=== PATIENT | male | born 1975 | race Caucasian/White ===

== ENCOUNTER 2017-03-29 01:01 | Inpatient (IN) | payer SELFPAY ==
[2017-03-29 02:15] LABS: PTT 33.2 SEC (22.9-36.1)
[2017-03-29 02:21] LABS: Lactic Acid - Sepsis 0.8 mmol/L (0.5-2.2)
[2017-03-29 02:25] LABS: ALT (SGPT) 1530 U/L (8-55); AST (SGOT) 1324 U/L (5-34); Alkaline Phosphatase 457 U/L (40-150); Anion Gap 11 mmol/L (10-20); BUN (Urea Nitrogen) 7 mg/dL (8.9-20.6); Bilirubin, Total 8.4 mg/dL (0.2-1.2); Calc. Creatinine Clearance 0 mL/min (70-130); Calcium 8.8 mg/dL (7.8-10.44); Carbon Dioxide 29 mmol/L (22-29); Chloride 103 mmol/L (98-107); Estimated GFR-MDRD Greater than 90; Globulin 3.1 g/dL (2.4-3.5); Lipase 30 U/L (8-78); Protein, Total 6.4 g/dL (6.0-8.3)
[2017-03-29 02:26] LABS: Acetaminophen Less than 6.0 mcg/mL (10.0-30.0); CK (CPK) 133 U/L (30-200); Magnesium 1.9 mg/dL (1.6-2.6); Salicylate Less than 8.0 mg/dL (15.0-30.0)
[2017-03-29 02:57] LABS: Amphetamine Detected (NotDetected); Methadone Not Detected (NotDetected); Methamphetamine Detected (NotDetected)
[2017-03-29 03:19] LABS: #Basophils 0.1 thou/uL (0.0-0.2); #Eosinphils 0.6 thou/uL (0.0-0.7); #Lymphocytes 2.5 thou/uL (1.20-3.40); #Monocytes 0.8 thou/uL (0.11-0.59); #Neutrophils 4.5 thou/uL (1.40-6.50); %Basophils 0.9 % (0.0-1.0); %Eosinophils 6.9 % (0.0-10.0); %Lymphocytes 29.3 % (21.0-51.0); %Monocytes 9.7 % (0.0-10.0); Hematocrit 43.9 % (42.0-52.0); Mean Platelet Volume 9.4 fL (7.4-10.4); Red Blood Cell (RBC) Count 4.52 mill/uL (4.70-6.10); White Blood Cell (WBC) Count 8.5 thou/uL (4.8-10.8)
[2017-03-29] MEDS: Sodium Chloride 0.9% 1,000 ML IV SCH ×3 (03:45→20:20)
[2017-03-29] MEDS ORDERED: Ondansetron HCl/PF 4 MG/2 ML Vial IVP PRN (03:53)
[2017-03-29] MEDS ORDERED: Ondansetron ODT 4 MG TAB SL PRN (03:53)
[2017-03-29 04:39] VITALS: BMI 18.8
--- NOTE | 2017-03-29 06:38 | HP-2 ---
DATE OF ADMISSION: 03/29/2017 CODE STATUS: FULL. PRIMARY CARE PHYSICIAN: Benitez acharya. ATTENDING: Vaughn Iverson M.D. RESIDENT: Tyree Gregg DO HISTORIAN: The patient. CHIEF COMPLAINT: Nausea, vomiting. HISTORY OF PRESENT ILLNESS: A 42-year-old male with a history of IV drug use incarceration, presents to the emergency room via outside facility with a chief complaint of 5 days of nausea and vomiting with one day of diarrhea that began on 03/24/2017. He is been able to tolerate fluids and some food; however, if he hits too much, he will become nauseous and vomit. Over the past 2 days, he states he became progressively weaker with some malaise saying that he almost felt he has the flu. 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 At one point yesterday while in the tree, he said he felt very weak and almost fell off the tree and to be caught by his safety rope. At that point , he spoke with his coworkers and they noticed that he had yellowing of his eyes and encouraged him to go to the emergency room. When he went to the emergency room, he was diagnosed with acute hepatitis and transferred to this facility. He has been consistently using IV methamphetamine for the past year, and has a history of incarceration of 18 years, was released in 2013. Apparently at the time of release from longterm, he was tested and was negative for hepatitis C. PAST MEDICAL HISTORY: None. PAST SURGICAL HISTORY: Status post ORIF to the right leg and arm. The specific location of the fracture is unknown to the patient. ALLERGIES: No known drug allergies. MEDICATIONS: None. FAMILY HISTORY: Alcoholism. SOCIAL HISTORY: Tobacco, none. ETOH, none. Drugs, IV methamphetamine and marijuana. 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 REVIEW OF SYSTEMS: General: The patient denies fever or chills. Admits to a decrease in appetite and fatigue. HEENT: Denies vision changes, eye pain, nasal congestion, or rhinorrhea. Respiratory: Denies any cough, congestion, shortness of breath. Cardiovascular: Denies any chest pain, palpitations, or edema. Gastrointestinal: Admits to nausea, vomiting, diarrhea. Denies constipation, abdominal pain, or GI bleeding. The patient does admit to multiple instances of a penny-colored stool. Genitourinary: Denies any dysuria or stephanie blood in his urine. Skin: Denies any rashes, lesions, admits to jaundice. Musculoskeletal: Denies pain, tenderness, stiffness. Neurologic: Denies any weakness or numbness. Psychiatric: Denies anxiety, depression. PHYSICAL EXAMINATION: VITAL SIGNS: Blood pressure is 114/77, pulse of 73, respiratory rate is 16, pulse oximetry 96% on room air, current weight is 70.3 kilograms. GENERAL: The patient is alert and oriented x3, and in no apparent distress. He is thin, appropriately interactive. HEENT: PERRLA, EOMI. Patient has scleral icterus bilaterally with nasal mucosa within normal limits. TMs are pearlescent without bulging or erythema. Oropharynx within normal limits. NECK: Supple, without lymphadenopathy or thyromegaly. CARDIOVASCULAR: Regular rate and rhythm without murmur. RESPIRATORY: Normal effort. Clear to auscultation bilaterally. No retractions. SKIN: Warm and dry with minimal jaundice. ABDOMEN: Soft with bowel sounds in all four quadrants. There is no mass, distention. There is some right upper quadrant tenderness and left lower quadrant tenderness. EXTREMITIES: There is no clubbing or edema. MUSCULOSKELETAL: Tone is within normal limits. NEUROLOGICAL: No focal neurological deficits and cranial nerves II through XII are grossly intact. LABORATORY DATA: CBC: Hemoglobin 13.1, hematocrit 38.2, white count 8.7, platelets 262, MCV is 89.7, bands 55%. CMP: Sodium 135, potassium 4.1, chloride 99, bicarbonate 26.4, BUN 8.0, creatinine 0.7, glucose 94, calcium 8.1 , total serum protein 6.4, albumin 3.3, AST 1204, ALT 1467, alkaline phosphatase 426, total bilirubin 8.6 with direct bilirubin of 5.3. PT 14, INR 1.4, PTT 33.2. Acetaminophen is less than 6. ETOH is less than 5. Lipase 29.6. UA specific gravity 1.025, blood 3+, protein 1+, leukocyte esterase negative, ketones negative, nitrites negative, glucose trace, rbc's too numerous to count, wbc's 0-5, bacteria rare. Right upper quadrant ultrasound shows a nonspecific gallbladder wall thickening with a pericholecystic fluid, may be secondary to acute hepatitis, positive Nava sign raised the possibility of acute acalculous cholecystitis. There is no identified cholelithiasis and no common bile duct dilatation. ASSESSMENT AND PLAN: This is a 42-year-old male with acute hepatitis of unknown etiology. 1. Acute hepatitis. Differential diagnosis includes viral hepatitis, Tylenol overdose, drug-related, obstruction, and autoimmune. The patient is currently not altered and coag studies are not suggestive of acute hepatic failure. We will order a viral hepatitis panel, toxicity screen, and ammonia levels. Admit to medicine. We will avoid hepatically eliminated medicines and we will provide supportive care until we are able to identify source. 2. Direct hyperbilirubinemia consistent with hepatocellular toxicity, workup as above. 3. Hematuria, possibly secondary from the trauma when he got caught by a harness when he fell out of a tree today versus possible blood spilling with a slightly elevated INR. 4. Intravenous drug use. We will add a human immunodeficiency virus and rapid plasma reagin in addition to the hepatitis panel. MTDD
--- NOTE | 2017-03-29 07:53 | ULT ---
PRELIMINARY REPORT/[facility]/EMERGENCY AFTER HOURS PROCEDURE: EXAM: US Abdomen Limited, Right Upper Quadrant EXAM DATE/TIME: Exam ordered 03/29/2017 1:37 AM CLINICAL HISTORY: 42 years old, male; Pain and signs and symptoms; Nausea and vomiting and other: Diarrhea; Abdominal pain; Epigastric; Additional info: HX: Acute hepatitis TECHNIQUE: Real-time ultrasound of the right upper quadrant with image documentation. COMPARISON: No relevant prior studies available. FINDINGS: Liver: Normal. No mass. No intrahepatic bile duct dilation. Gallbladder: There is gallbladder wall thickening measuring approximately 6 mm. A positive sonograph ic Nava sign is reported. Pericholecystic fluid is present. No cholelithiasis is identified. Common bile duct: Unremarkable as visualized. No stones. No dilation. Pancreas: The visualized pancreas is normal. Right kidney: RIGHT kidney measures 11.3 x 4.3 x 6.0 cm. No stones. No hydronephrosis. IMPRESSION: Nonspecific gallbladder wall thickening and pericholecystic fluid may be secondary to acute hepatiti s however positive Nava sign raises the possibility of acute acalculus cholecystitis. Correlate cl inically. Thank you for allowing us to participate in the care of your patient. Dictated and Authenticated by: Maxwell Shankar MD 03/29/2017 2:07 AM Central Time ([place] \T\ [place]) FINAL REPORT GALLBLADDER ULTRASOUND: Date: 03/29/17 FINDINGS/IMPRESSION: I agree with the preliminary report given by Dr. Maxwell Shankar of [facility]. POS: [facility]
[2017-03-29 08:17] LABS: ALT (SGPT) 1527 U/L (8-55); AST (SGOT) 1348 U/L (5-34); Alkaline Phosphatase 425 U/L (40-150); Anion Gap 9 mmol/L (10-20); BUN (Urea Nitrogen) 6 mg/dL (8.9-20.6); Bilirubin, Total 8.3 mg/dL (0.2-1.2); Calc. Creatinine Clearance 113 mL/min (70-130); Calcium 8.6 mg/dL (7.8-10.44); Carbon Dioxide 27 mmol/L (22-29); Chloride 106 mmol/L (98-107); Estimated GFR-MDRD Greater than 90; Protein, Total 6.2 g/dL (6.0-8.3)
--- NOTE | 2017-03-29 11:27 | PDOC.EVN ---
Attending Addendum - Attending Addendum I personally evaluated the patient and discussed the management with Dr. Gregg. I agree with the History, Examination, Assessment and Plan documented in his H& P with any addition or exceptions noted below. Patient admitted with what sounds likely acute onset of jaundice associated with highly elevated liver enzymes and ALP, after a few days of feeling unwell. He has subsequently tested positive for Hep C, and liver U/S does not show any evidence of major abnormality. Currently, patient being treated supportively for hepatitis, with inciting cause overall unknown. It is possible that this could be acute Hep C infection due to history of drug abuse, but I feel that is less likely to cause the patient's current lab abnormalities. My differential at this time includes autoimmune, infectious, portal vein thrombosis, biliary obstruction (stone versus stricture versus mass). Despite fluid therapy, his AST /ALT/ALP have remained elevated. No current evidence of fulminant hepatic failure as his coags are normal and albumin only mildly decreased, implying continued good liver synthetic function. His labs paint a picture of possible obstruction. Radiology has re-reviewed the abdominal ultrasound and there is no evidence of vascular congestion or canaliculi/biliary dilation, so that seems like portal vein thrombosis and biliary obstruction are less likely. However, he does have an elevated conjugated bilirubin, continuing to suggest either intrinsic liver process versus obstructive process. We are obtaining labs to screen for auto-immune hepatitis and PBC and sclerosing cholangitis. Patient overall feels improved at this time. We will go ahead and consult GI at this time in case more acute intervention needed for his liver process that is going on. Radiology feels like MRCP/ERCP might aid in diagnosis and therefore will get GI recommendations.
--- NOTE | 2017-03-29 14:10 | CON ---
DATE OF CONSULTATION: 03/29/2017 HISTORY OF PRESENT ILLNESS: The patient is a 42-year-old male who reports a 6-day history of nausea, vomiting, and abdominal discomfort. He reports his abdominal discomfort is more diffuse and somewhat in the upper abdomen, not particularly severe and has essentially resolved today. It was noted by one of his friends to be jaundiced and sought care in the emergency room. He denies pr ior history of hepatitis. Denies any weight loss, denies any fever or chills. He does use IV metha mphetamine. He has been incarcerated in the past and received some sort of hepatitis vaccine while incarcerated. PAST MEDICAL HISTORY: None. PAST SURGICAL HISTORY: Negative. MEDICATIONS: None. ALLERGIES: No known allergies. SOCIAL HISTORY: He does smoke half pack per day. Does not drink. He does use IV drugs. FAMILY HISTORY: Significant for alcoholism. REVIEW OF SYSTEMS: Ten systems were reviewed and were negative except for above. PHYSICAL EXAMINATION: GENERAL: Shows a jaundiced white male in no acute distress. VITAL SIGNS: Temperature is 97.3, pulse 59, respiratory rate 18, blood pressure 106/61. HEENT: Shows scleral icterus. NECK: Supple. CHEST: Clear. CARDIOVASCULAR: Regular rate and rhythm. ABDOMEN: Soft, nontender, without organomegaly or masses. Bowel sounds present and normoactive. RECTAL: Deferred. EXTREMITIES: Normal. NEUROLOGIC: Nonfocal. SKIN: Shows tattoo in the abdomen. LABORATORY DATA: Shows CBC with hemoglobin 13.8, MCV of 97.2, platelet count 286. PT is 14.0 with an INR of 1.1. Chemistries significant for admission total bilirubin of 8.4, repeat is 8.3, AST is 13 and 48, ALT of 15 and 27, alkaline phosphatase of 425, albumin 3.2. Lipase of 30. Toxicology is positive for amphetamines and methamphetamines. Alcohol, acetaminophen, and salicylates are negati ve. Serology shows nonreactive syphilis serology. Hepatitis A is nonreactive, hepatitis B surface antigen is nonreactive, hepatitis B surface antibody is reactive. Hepatitis B surface antibody inde x is 435. Hepatitis B core antibody is nonreactive. Hepatitis C antibody is positive. HIV is nega tive. ASSESSMENT: 1. Acute hepatitis - suspect viral hepatitis. However, serology for hepatitis A is negative. Hepa titis B serology seems to show that he has had previous vaccination and immune. Hepatitis C is posi tive, so unlikely that this is acute hepatitis C as his antibody is positive. 2. Nausea and vomiting. 3. Methamphetamine abuse. RECOMMENDATIONS: 1. CT of the liver. 2. Hepatitis C viral level and genotype. 3. Supportive care.
[2017-03-29] MEDS ORDERED: ISOVUE-370 76%-LOCM 1 ML ONE (14:26)
--- NOTE | 2017-03-29 15:46 | CT ---
CT ABDOMEN WITH CONTRAST: HISTORY: Elevated transaminase lab values. Jaundiced for five days. Evaluate for biliary obstruction. COMPARISON: None. TECHNIQUE: Multiple contiguous axial images were obtained in a CT of the abdomen only with contrast, and p.o. c ontrast was administered. Coronal reformats were performed. FINDINGS: There is severe thickening of the gallbladder wall and a small amount of pericholecystic fluid. No enlargement of the common bile duct or intrahepatic biliary tree is seen. There is a small amount o f periportal edema. No focal liver lesions are present. The kidneys, adrenal glands, spleen, and pancreas are unremarkable. No free air, free fluid, or str anding changes are seen in the abdomen. The visualized portions of the large and small bowel are un remarkable. No significant contrast is seen in the colon. There is soft tissue density in the righ t lower quadrant of the abdomen, which may represent decompressed distal small bowel loops, which guerrier ve not yet filled with contrast. No abdominal adenopathy is seen. The osseous structures, visualized inferior thorax, and abdominal wall soft tissues are unremarkable . IMPRESSION: 1. Gallbladder wall thickening is nonspecific. 2. No evidence of biliary obstruction. POS: [facility]
[2017-03-29 16:35] LABS: ALT (SGPT) 1531 U/L (8-55); AST (SGOT) 1295 U/L (5-34); Alkaline Phosphatase 434 U/L (40-150); Anion Gap 13 mmol/L (10-20); BUN (Urea Nitrogen) 6 mg/dL (8.9-20.6); Bilirubin, Total 9.9 mg/dL (0.2-1.2); Calc. Creatinine Clearance 114 mL/min (70-130); Calcium 8.9 mg/dL (7.8-10.44); Carbon Dioxide 26 mmol/L (22-29); Chloride 104 mmol/L (98-107); Estimated GFR-MDRD Greater than 90; Globulin 3.1 g/dL (2.4-3.5); Protein, Total 6.4 g/dL (6.0-8.3)
[2017-03-30 04:37] LABS: #Basophils 0.1 thou/uL (0.0-0.2); #Eosinphils 0.5 thou/uL (0.0-0.7); #Lymphocytes 2.7 thou/uL (1.20-3.40); #Monocytes 1.1 thou/uL (0.11-0.59); #Neutrophils 5.5 thou/uL (1.40-6.50); %Basophils 0.6 % (0.0-1.0); %Eosinophils 4.7 % (0.0-10.0); %Monocytes 11.5 % (0.0-10.0); Hematocrit 42.3 % (42.0-52.0); Mean Platelet Volume 8.8 fL (7.4-10.4); Red Blood Cell (RBC) Count 4.36 mill/uL (4.70-6.10); White Blood Cell (WBC) Count 9.9 thou/uL (4.8-10.8)
[2017-03-30 04:54] LABS: ALT (SGPT) 1468 U/L (8-55); AST (SGOT) 1237 U/L (5-34); Alkaline Phosphatase 421 U/L (40-150); Anion Gap 11 mmol/L (10-20); BUN (Urea Nitrogen) 9 mg/dL (8.9-20.6); Bilirubin, Total 9.9 mg/dL (0.2-1.2); Calc. Creatinine Clearance 97 mL/min (70-130); Calcium 8.9 mg/dL (7.8-10.44); Carbon Dioxide 29 mmol/L (22-29); Chloride 102 mmol/L (98-107); Estimated GFR-MDRD Greater than 90; Protein, Total 6.3 g/dL (6.0-8.3)
[2017-03-30] MEDS: Sodium Chloride 0.9% 1,000 ML IV SCH ×2 (05:26→08:28)
--- NOTE | 2017-03-30 06:40 | PDOC.FM ---
- Subjective Subjective: Patient doing well this AM. No significant overnight events. Had a very honest conversation with patient this AM. We discussed recent tylenol use/abuse. Patient states that he took two tylenol #3 a month or two ago, but has not taken anything since. He also admitted to his IV drug use, and states that he has been calling around to see if the drugs he has been using have been "cut" with anything different. So far he has been told no. He states that everything seemed to start after eating chicken a few nights ago. He got what he thought was food poisoning. His friend noted he looked pale at that time. At work a day or two later, he almost fell out of a tree because he got dizzy. That is ultimately what prompted him to come into the ER. A year ago, patient tested negative for HepC. That was around the time he was being released from care home. The HepC is a new diagnosis for patient. He understands that the drug use is likely the culprit of the HepC infection. We also discussed that there were treatments for Hep C, however, it is not likely that the Hep C is what is causing the acute infection. - Objective MAR Reviewed: Yes Vital Signs & Weight: Vital Signs (12 hours) Temp Pulse Resp BP Pulse Ox 03/30/17 04:00 98.4 F 59 L 16 113/68 97 03/30/17 00:00 98.2 F 66 18 114/70 98 03/29/17 20:00 98.5 F 74 16 110/67 98 Weight Admit Weight 62.913 kg Weight 62.913 kg I&O: 03/28/17 03/29/17 03/30/17 06:59 06:59 06:59 Intake Total 1640 4400 Output Total 1000 Balance 640 4400 Result Diagrams: 03/30/17 03:59 03/30/17 03:59 <Jessenia Goldman - Last Filed: 03/30/17 08:43> - Objective Vital Signs & Weight: Vital Signs (12 hours) Temp Pulse Resp BP Pulse Ox 03/30/17 08:00 98.0 F 77 16 98 03/30/17 07:50 98.0 F 77 16 100/64 98 03/30/17 04:00 98.4 F 59 L 16 113/68 97 Weight Admit Weight 62.913 kg Weight 62.913 kg I&O: 03/29/17 03/30/17 03/31/17 06:59 06:59 06:59 Intake Total 1640 4400 440 Output Total 1000 875 Balance 640 4400 -435 Result Diagrams: 03/30/17 03:59 03/30/17 03:59 <IversonVaughn Cherelle - Last Filed: 03/30/17 14:25> Phys Exam - Physical Examination Constitutional: NAD HEENT: moist MMs Scleral icterus Neck: supple, full ROM Respiratory: no wheezing, no rales, no rhonchi, clear to auscultation bilateral Cardiovascular: RRR, no significant murmur Gastrointestinal: soft, no distention, positive bowel sounds mild tenderness on right side of abdomen. Negative ruiz's. Musculoskeletal: no edema, pulses present Neurological: moves all 4 limbs Psychiatric: normal affect, A&O x 3 Skin: cap refill <2 seconds Deviation from normal: Athlete's foot on right. <Jessenia Goldman - Last Filed: 03/30/17 08:43> Dx/Plan (1) Acute hepatitis Code(s): B17.9 - ACUTE VIRAL HEPATITIS, UNSPECIFIED Status: Acute Plan: -Specific cause unknown -Likely viral; although Hep A antibodies negative -Hep C antibodies positive; however, likely not cause as antibodies would not yet be present if acute infection -CT of abdomen performed; nonspecific gallbladder wall thickening and no evidence of biliary obstruction -RUQ U/S showed gallbladder wall thickening without any stones -Obtained more history from patient; did not assist in diagnosis. -Supportive therapy -IVF -Zofran for N/V -GI consulted; appreciate recommendations -Patient tolerating PO -Pending SHILO and AMA -HIV, RPR negative (2) Hepatitis C Code(s): B19.20 - UNSPECIFIED VIRAL HEPATITIS C WITHOUT HEPATIC COMA Status: Acute Plan: -Hepatitis C viral level and genotype -HepC Ab positive; was negative one year ago -Supportive therapy at this time (3) Methamphetamine abuse Code(s): F15.10 - OTHER STIMULANT ABUSE, UNCOMPLICATED Status: Acute Plan: -Stitch Burnisher on cessation -Likely cause for Hep C infection <Jessenia Goldman - Last Filed: 03/30/17 08:43> Attending Addendum - Attending Addendum I personally evaluated the patient and discussed the management with Dr. Goldman. I agree with the History, Examination, Assessment and Plan documented above with any addition or exceptions noted below. Patient clinically stable, though his bilirubin has worsened some. Enzymes are mildly downtrending. CT negative for any cause of obstructive process. It is currently thought that his hepatitis is acute viral in nature, though auto immune labs pending. Will check coags tomorrow to ensure synthetic function not worsening. Continue supportive measures. <Vaughn Iverson R - Last Filed: 03/30/17 14:25>
[2017-03-30 10:47] LABS: Prothrombin Time 14.1 SEC (12.0-14.7)
[2017-03-30 10:48] LABS: PTT 34.9 SEC (22.9-36.1)
[2017-03-30 16:36] LABS: ALT (SGPT) 1482 U/L (8-55); AST (SGOT) 1286 U/L (5-34); Alkaline Phosphatase 456 U/L (40-150); Anion Gap 12 mmol/L (10-20); BUN (Urea Nitrogen) 7 mg/dL (8.9-20.6); Bilirubin, Total 9.4 mg/dL (0.2-1.2); Calc. Creatinine Clearance 110 mL/min (70-130); Calcium 8.9 mg/dL (7.8-10.44); Carbon Dioxide 26 mmol/L (22-29); Chloride 103 mmol/L (98-107); Estimated GFR-MDRD Greater than 90; Globulin 3.1 g/dL (2.4-3.5); Protein, Total 6.4 g/dL (6.0-8.3)
[2017-03-30 18:39] VITALS: BP 108/64; TEMP 98.1
--- NOTE | 2017-03-30 19:33 | PRG ---
DATE OF SERVICE: 03/30/2017 SUBJECTIVE: The patient is feeling well. He is having no pain, no nausea, vomiting, no diarrhea. He is eating well without complaints. He is ready to go home: PHYSICAL EXAMINATION: VITAL SIGNS: Temperature 98.0, pulse 77, respiratory rate 16, blood pressure 100/64. CHEST: Clear. CARDIOVASCULAR: Regular rate and rhythm. ABDOMEN: Benign. . LABORATORY DATA: Shows stable LFTs SHILO is negative. CBC is essentially unchanged. The patient has no coagulopathy. ASSESSMENT: Acute hepatitis -- patient does not appear to be in acute hepatic failure and is not guerrier ving any particular acute complications at this time. RECOMMENDATIONS: 1. Consider testing for autoimmune hepatitis with SHILO, smooth muscle antibody. 2. Antimitochondrial antibody. 3. Ceruloplasmin. 4. Shahab-Abarca viral serology. 5. The patient seems to be stable for discharge if these can have close followup with a repeat set of LFTs in 3-4 days.
[2017-03-31 12:10] LABS: HCV I.Units 12000000 IU/mL (.); HCV I.Units log10 7.079 (.); Hep C PCR-Quant See Final Results IU/mL (.)
--- NOTE | 2017-04-02 00:16 | DIS-2 ---
DATE OF ADMISSION: 03/29/2017 DATE OF DISCHARGE: 03/30/2017 RESIDENT: Jessenia Goldman DO ADMITTING ATTENDING: Renee Bethea DO DISCHARGE ATTENDING: Vaughn Iverson MD CONSULTATIONS: Gastroenterology, Jose Zavala MD PROCEDURES: 1. Abdominal ultrasound, there was nonspecific gallbladder wall thickening and pericholecystic fluid that may be secondary to acute hepatitis. There is a possibility of acute acalculous cholecystitis. 2. Abdominal CT with contrast, there was nonspecific gallbladder wall thickening and no evidence of biliary obstruction. PRIMARY DIAGNOSES: 1. Acute hepatitis, likely viral etiology. 2. Hyperbilirubinemia. SECONDARY DIAGNOSES: 1. Chronic hepatitis C. 2. Methamphetamine abuse. DISCHARGE MEDICATIONS: None. DISCONTINUED MEDICATIONS: None. HISTORY OF PRESENT ILLNESS AND HOSPITAL COURSE: This is a 42-year-old male with a history of IV drug abuse and incarceration within the last year, who presented to the emergency room via an outside facility with chief complaint of 5 days of nausea and vomiting and 1 day of diarrhea. He has been able to tolerate fluids and some food; however, he has been struggling with nausea and vomiting. Two days prior to the admission, he became progressively weaker with some malaise, stating that he felt like he had the flu. 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 At one point, he felt very weak and almost fell from the tree and was caught by his safety rope. At that point, he spoke with his co-workers and they noticed that he had yellowing of his eyes and encouraged him to go to the emergency room. He was diagnosed with acute hepatitis and transferred to [facility]. He has been consistently using IV methamphetamine for the past year and has a history of incarceration of 18 years. He was released in 2013. Apparently, at the time of release from [facility], he was tested and was negative for hepatitis C. The patient remained stable throughout the course of his hospital stay. He continued to clinically improve. Nausea and vomiting were relieved with Zofran. The patient was able to tolerate p.o. intake without any difficulty. He was eating a full diet and had no nausea or vomiting at all during his hospital stay. The patient was IV fluid resuscitated and GI was consulted. GI recommended CT of the abdomen with contrast; this showed some nonspecific gallbladder wall thickening and no evidence of biliary or liver obstruction. The hepatitis panels were performed. The patient was negative for hepatitis A and B; however, he was positive hepatitis C. Likely this is not the cause of his acute infection. This is likely chronic in nature; however, a hepatitis C viral level and phenotype were obtained which showed elevated quantitative HCV. GI recommended supportive care. As the patient continued to clinically improve , did not recommend much further workup. Liver enzymes did not downtrend; however, they did remain stable. Bilirubin increased initially but remained stable after that period in time. Additionally, coagulation studies were performed the day after admission; they too remained stable. AST and ALT on admission were 1324 and 1530, respectively. On discharge, the AST and ALT were 1286 and 1482, respectively. Bilirubin on admission was 8.4, on discharge, it was 9.4; however, it had gone up to a high of 9.9. At one point during the hospital stay, alkaline phosphatase was also elevated in the mid 400s. Sodium was 138, potassium 4.1, chloride 103, bicarbonate 26, BUN 7, creatinine 0.78, calcium 8.9, magnesium 1.9, creatinine kinase is 133. Lactic acid was normal at 0.8. As mentioned previously, coagulation studies were performed on admission; they were PT 14, INR 1.1 and PTT of 33.2. These labs remained stable and on the second day of admission, PT was 14.1, INR 1.1, and PTT of 34.9 indicating no dysfunction in synthetic process of liver. Albumin remained stable at 3.3 throughout the entire course of the hospital stay on several serial CMPs. CBC was performed. White blood cell count was 8.5, hemoglobin 13.8, hematocrit 43.9, and platelet count of 286. Toxicology did show positive amphetamines and methamphetamines for which the patient admitted to using. An SHILO was performed to evaluate for autoimmune causes of hepatitis. SHILO was negative and antimitochondrial antibody was also performed to rule out primary biliary cirrhosis. SHILO was 7.9, which is within the normal range. Syphilis was negative. HIV antigen and antibody were nonreactive. As mentioned previously, hepatitis C antibody was positive. Hepatitis C RNA was noted to be 12 million with the PCR log of 7.079. After speaking with Dr. Zavala of , he recommended further testing with SHILO, anti-smooth muscle antibody, antimitochondrial antibody, ceruloplasmin, antitrypsin, and EBV to further evaluate cause of acute hepatitis. These serologies were performed and are currently pending. GI felt that the patient was stable for discharge with close followup of repeat LFTs in the next 3-4 days. This was discussed at length with the patient. The patient was highly motivated to follow up. Although he does not have a primary care physician, he stated that he would be willing to pay to see a physician. The number for [employer] [facility] [employer] was also provided as patient is non-funded. It was explained in detail the necessity for a very close followup to reevaluate the liver enzymes. The patient was in understanding of this plan. He was given the option to stay in the hospital an additional day; however, he stated he did not have a ride the following day and would rather leave the day of discussion since his mother was in town and could provide him a ride home. He stated that he would indeed follow up closely with a physician. As mentioned previously, he was very highly motivated to do so. He has not been ill recently and this episode did scare him. Prior to discharge, it was discussed with the patient to refrain from alcohol, drug, or Tylenol use, as this could further exacerbate his acute illness. The patient was in agreement with this and is in understanding the necessity to stay away from these substances and the necessity for very close followup. The pending serologies if positive will be relayed to the patient once resulted. DISPOSITION: Stable. DISCHARGE INSTRUCTIONS: 1. Location: Home. 2. Diet: Regular. 3. Activity: As tolerated. The patient advised to refrain from working up in trees until he is stronger physically. He does need some time to recover and to regain strength. 4. Followup: The patient is to follow up within 3-4 days and no later than 7 days with a primary care or gastrointestinal physician. The [employer] [facility] [employer] was provided to the patient as he was unfunded, although it was discussed that he could see anyone he desired depending on the funding he had available. The patient was very highly motivated to be reevaluated. Liver enzymes are to be retested at the followup visit. The patient was in understanding of this plan and agreeable. JOSE ELIAS
== END 2017-03-30 18:39 | disposition home or self-care (01) | DRG 443 ==
LOC: ERS 01:01 → T4-B 03:45
PROVIDERS: ADMIT Family Medicine; ATTEND Family Medicine
DX: B17.9 Acute viral hepatitis, unspecified (principal); K81.9 Cholecystitis, unspecified; F15.10 Other stimulant abuse, uncomplicated; E80.6 Other disorders of bilirubin metabolism; R31.9 Hematuria, unspecified; B18.2 Chronic viral hepatitis C
CPT/HCPCS: 36415; 74160; 76705; 80053; 80306; 80307; 82103; 82140; 82390; 82550; 83516; 83605; 83690; 83735; 85025; 85610; 85730; 86038; 86704; 86706; 86708; 86709; 86780; 86803; 87340; 87389; 87522; 96360

== ENCOUNTER 2018-04-22 12:59 | Inpatient (IN) | payer SELFPAY ==
--- NOTE | 2018-04-22 14:52 | RAD ---
THREE VIEWS RIGHT HAND: HISTORY: Right hand infection. FINDINGS: AP, lateral, and oblique views of the right hand are obtained. Three views right hand demonstrate ol d surgical hardware in the distal right radius. A nonhealed ulnar styloid fracture is also seen whic h appears to be old. No acute right hand fractures seen. No definite evidence of osseous lesions seen to suggest obvious lytic bony pathology. IMPRESSION: No evidence of acute right hand abnormality is seen. POS: PENELOPE
[2018-04-22 15:04] LABS: Hemoglobin 12.7 g/dL (14.0-18.0); Mean Corpuscular HGB CONC 31.7 g/dL (32.0-36.0); Mean Corpuscular Volume 94.7 fL (78.0-98.0); Mean Platelet Volume 7.6 fL (7.4-10.4); Platelet Count 268 thou/uL (130-400); RBC Distribution Width 13.2 % (11.5-14.5); Red Blood Cell (RBC) Count 4.22 mill/uL (4.70-6.10); White Blood Cell (WBC) Count 9.3 thou/uL (4.8-10.8)
[2018-04-22 15:21] LABS: Band 5 % (5-11); Lymphocytes 6 % (21-51); MDiff Complete? YES; Metamyelocyte 1 % (0-0); Monocytes 10 % (0-10); Neutrophil 75 % (42-75); PLT Morphology Comment Appears Adequate; Polychromasia SLIGHT = 2-3 cells (100X) (0-2/hpf); Reactive Lymphocytes 2 % (0-10)
[2018-04-22 15:25] LABS: ALT (SGPT) 30 U/L (8-55); AST (SGOT) 31 U/L (5-34); Albumin 3.4 g/dL (3.5-5.0); Alkaline Phosphatase 185 U/L (40-150); Anion Gap 9 mmol/L (10-20); BUN (Urea Nitrogen) 7 mg/dL (8.9-20.6); Bilirubin, Total 0.6 mg/dL (0.2-1.2); Calc. Creatinine Clearance 0 mL/min (70-130); Calcium 8.9 mg/dL (7.8-10.44); Carbon Dioxide 30 mmol/L (22-29); Chloride 99 mmol/L (98-107); Estimated GFR-MDRD Greater than 90; Globulin 4.8 g/dL (2.4-3.5); Glucose 111 mg/dL (70-105); Potassium 4.4 mmol/L (3.5-5.1); Protein, Total 8.2 g/dL (6.0-8.3); Sodium 134 mmol/L (136-145)
[2018-04-22] MEDS ORDERED: Ketorolac Tromethamine 30 MG/ML VIAL ONE (15:55)
--- NOTE | 2018-04-22 16:38 | PDOC.FPRHP ---
- History of Present Illness Chief Complaint: Hand wound History of Present Illness: Mr Palma is a 43yo male with pmh of substance and tobacco abuse presenting with right hand wound. Reports happened 04/07 while cutting down a tree. The tree fell towards him and he tried holding it up. Shortly after he started feeling "bad." 7 days ago he noticed a swollen painful lymph node in his right axillary. Yesterday he developed a diffuse nonpruritic rash on both arms and trunk. Reports subjective fever and chills over last few days. ED Course: 1g Vancomycin, 2L NS, Toradol 30mg - Allergies/Adverse Reactions Allergies Allergy/AdvReac Type Severity Reaction Status Date / Time No Known Drug Allergies Allergy Unverified 03/29/17 04:41 - Home Medications Medication Instructions Recorded Confirmed Type No Known 03/29/17 04/23/18 History - History PMHx: None PSHx: None FHx: All healthy Social: Smokes cigarettes 1/2pk/day since age 9. Drinks socially. Uses meth occasionally, last used 6 days ago - Review of Systems General: reports: fever/chills, weight/appetite/sleep changes, fatigue Eyes: denies: eye pain, vision changes ENT: denies: nasal congestion, rhinorrhea Respiratory: denies: cough, congestion, shortness of breath Cardiovascular: denies: chest pain, palpitation, edema Gastrointestinal: reports: nausea. denies: vomiting, abdominal pain Genitourinary: denies: incontinence, dysuria Skin: reports: rashes. denies: itching Musculoskeletal: denies: pain, stiffness, swelling, arthritis/arthralgias Neurological: denies: numbness, weakness - Vital signs BP: 132/83 HR: 92 RR: 19 Tmax: 99.8 Pox: 99% on RA Wt: 68kg - Physical Exam Constitutional: NAD, awake, alert and oriented, well developed -Constitutional: Ill appearing HEENT: normocephalic and atraumatic, PERRLA (pupils constricted), MMM, oropharynx clear Neck: supple Heart: RRR, no murmurs/rubs/gallops Lungs: CTAB, no respiratory distress Abdomen: soft, non-tender, bowel sounds present Musculoskeletal: normal structure, normal tone Neurological: no focal deficit Skin: capillary refill <2 seconds -Skin: Diffuse rash 1.5cm wound with purulent drainage over right dorsal 2nd metocarpal-phalangeal joint Heme/Lymphatic: other (Golf ball sized tender lymphnode in right axilla No cervical lymphadenopathy) Psychiatric: normal mood and affect, good judgment and insight, intact recent and remote memory FMR H&P: Results - Labs Result Diagrams: 04/23/18 04:15 04/23/18 04:15 Lab results: WBC 9.3 thou/uL (4.8-10.8) 04/22/18 14:47 Hgb 12.7 g/dL (14.0-18.0) L 04/22/18 14:47 Hct 40.0 % (42.0-52.0) L 04/22/18 14:47 MCV 94.7 fL (78.0-98.0) 04/22/18 14:47 Plt Count 268 thou/uL (130-400) 04/22/18 14:47 Band Neuts % (Manual) 5 % (5-11) 04/22/18 14:47 ESR Westergren 52 mm/hr (Less than 15) 04/22/18 14:47 Sodium 134 mmol/L (136-145) L 04/22/18 14:47 Potassium 4.4 mmol/L (3.5-5.1) 04/22/18 14:47 Chloride 99 mmol/L (98-107) 04/22/18 14:47 Carbon Dioxide 30 mmol/L (22-29) H 04/22/18 14:47 BUN 7 mg/dL (8.9-20.6) L 04/22/18 14:47 Creatinine 0.79 mg/dL (0.6-1.3) 04/22/18 14:47 Glucose 111 mg/dL (70-105) H 04/22/18 14:47 Lactic Acid 1.1 mmol/L (0.5-2.2) 04/22/18 14:47 Calcium 8.9 mg/dL (7.8-10.44) 04/22/18 14:47 Total Bilirubin 0.6 mg/dL (0.2-1.2) 04/22/18 14:47 AST 31 U/L (5-34) 04/22/18 14:47 ALT 30 U/L (8-55) 04/22/18 14:47 Alkaline Phosphatase 185 U/L (40-150) H 04/22/18 14:47 C-Reactive Protein 7.66 mg/dL (= or < 0.5) H 04/22/18 14:47 Serum Total Protein 8.2 g/dL (6.0-8.3) 04/22/18 14:47 Albumin 3.4 g/dL (3.5-5.0) L 04/22/18 14:47 - Radiology Interpretation Other Status: report reviewed by me Additional comment: Right hand Xray: no abnormalities FMR H&P: A/P - Problem List (1) Open wound of right hand Current Visit: Yes Status: Acute Code(s): S61.401A - UNSPECIFIED OPEN WOUND OF RIGHT HAND, INITIAL ENCOUNTER (2) Tobacco abuse Current Visit: Yes Status: Acute Code(s): Z72.0 - TOBACCO USE (3) Hepatitis C Current Visit: No Status: Acute Code(s): B19.20 - UNSPECIFIED VIRAL HEPATITIS C WITHOUT HEPATIC COMA (4) Methamphetamine abuse Current Visit: No Status: Acute Code(s): F15.10 - OTHER STIMULANT ABUSE, UNCOMPLICATED - Plan Right Hand Cellulitis - Axillary lymphadenopathy - Xray neg for bone involvement - Will obtain MRI to further evaluate, r/o infection involving joint - Continue Vanc/Zosyn - Blood and Wound Cultures pending - Wound Care consulted - F/u Vanc trough - LR @ 100 Hepatitis C - Diagnosed at prior admission - Continue to monitor Substance abuse - Uses Meth, last use 04/1618 - Likely source of Hep C infection Tobacco Abuse - Nicotine patch PRN - 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 Physical Exam: General: alert and oriented x 3 Heart: RRR, no MRG Lungs: CTAB Extremity: RUE with 2 cm superficial ulceration with raised edges and erythematous border all overlying 2nd MCP. streaking up right arm; ~ 5 cm enlarged tender axillary lymph node. - Plan Date/Time: 04/22/18 1634 IBrandee, have evaluated this patient and agree with findings/plan as outlined by advisory internship resident. Pertinent changes/additions are listed here. Cellulitis with lymphangitis. - will continue broadspectrum antibiotics. - due to location of cellulitis overlying joint, we will obtain imaging. - ESR, CRP, wound gram stain/cultures, and blood cultures pending. Hepatitis C history - not currently on treatment - will clarify if pt has ever undergone treatment. Hx of substance abuse. Attending Addendum - Attending Addendum Date/Time: 04/23/181944 I personally evaluated the patient and discussed the management with Dr. Bah on 04/22/2018. I agree with the History, Examination, Assessment and Plan documented above with any addition or exceptions noted below- 43 yo male with h/o substance abuse and hepatitis C who presented with right hand wound. Patient states that he injured his hand 2 weeks ago when he was cutting down a tree. Does not believe he got any thing into the wound but it was taking time to heal. 1 week he noted an enlarged tender lymph node in right axilla. Developed sibj fever/ chills over last 2-3 days. Denies any N/V. Denies any hand pain. PMH/PSH/All/ Meds reviewed and agree with resident's documentation. T103.1 P104 RR22 BP129 /74 Exam repeated by me and agree with resident's findings. Labs: WBC=9.3, H/H= 12.7/40.0, Hni=832, Diff=75N/5B/6L, Lg=139, K=4.4, Cl=99, CO2=30, BUN/Cr=7/0.79 , AST/ALT= 31/30, CRP=7.66. Hand x-ray- negative. A/P: 1) Possible cellulitis- Admit to medical. Continue IV abx. Blood cultures drawn and pending. Consider MRI in morning.
[2018-04-22] MEDS ORDERED: Acetaminophen 500 MG TAB ONE (18:42)
[2018-04-22] MEDS ORDERED: Ondansetron ODT 4 MG TAB PO PRN (19:47)
[2018-04-22] MEDS ORDERED: Nicotine 14 MG PATCH TD SCH (19:47)
[2018-04-22] MEDS: Lactated Ringer's 1,000 ML IV SCH (19:59)
[2018-04-22] MEDS: Piperacillin/Tazobactam 3.375 GM in Sodium Chloride 0.9% 100 ML IVPB SCH (21:12)
[2018-04-22] MEDS: Nicotine 14 MG PATCH TD SCH (21:12)
[2018-04-22] MEDS: Ibuprofen 600 MG TAB PO PRN (21:19)
[2018-04-23 02:47] VITALS: BMI 20.3
[2018-04-23] MEDS: Piperacillin/Tazobactam 3.375 GM in Sodium Chloride 0.9% 100 ML IVPB SCH ×4 (03:45→22:18)
[2018-04-23] MEDS: Vancomycin HCl 1 GM in Premix Bag 1 BAG IVPB SCH ×2 (04:25→16:26)
[2018-04-23 05:51] LABS: ALT (SGPT) 38 U/L (8-55); AST (SGOT) 44 U/L (5-34); Albumin 2.7 g/dL (3.5-5.0); Alkaline Phosphatase 234 U/L (40-150); Anion Gap 10 mmol/L (10-20); BUN (Urea Nitrogen) 9 mg/dL (8.9-20.6); Bilirubin, Total 0.7 mg/dL (0.2-1.2); Calc. Creatinine Clearance 108 mL/min (70-130); Calcium 8.5 mg/dL (7.8-10.44); Carbon Dioxide 29 mmol/L (22-29); Chloride 105 mmol/L (98-107); Estimated GFR-MDRD Greater than 90; Globulin 3.8 g/dL (2.4-3.5); Glucose 148 mg/dL (70-105); Potassium 4.7 mmol/L (3.5-5.1); Protein, Total 6.5 g/dL (6.0-8.3); Sodium 139 mmol/L (136-145)
[2018-04-23 06:09] LABS: Band 19 % (5-11); Hemoglobin 10.9 g/dL (14.0-18.0); Lymphocytes 5 % (21-51); MDiff Complete? YES; Mean Corpuscular Hemoglobin 30.7 pg (27.0-31.0); Mean Corpuscular Volume 96.1 fL (78.0-98.0); Mean Platelet Volume 8.7 fL (7.4-10.4); Monocytes 14 % (0-10); Neutrophil 62 % (42-75); PLT Morphology Comment Appears Adequate; Platelet Count 214 thou/uL (130-400); RBC Distribution Width 13.3 % (11.5-14.5); Red Blood Cell (RBC) Count 3.54 mill/uL (4.70-6.10); White Blood Cell (WBC) Count 11.6 thou/uL (4.8-10.8)
--- NOTE | 2018-04-23 06:12 | PDOC.FM ---
- Subjective Subjective: Pt reports fever and chills overnight that was relieved with Motrin. Denies nausea, vomiting, pain. No questions or concerns. - Objective MAR Reviewed: Yes Vital Signs & Weight: Vital Signs (12 hours) Temp Pulse Resp BP Pulse Ox 04/23/18 00:00 97.8 F 82 16 95/55 L 100 04/22/18 21:25 102.1 F H 106 H 20 111/59 L 04/22/18 20:00 96 04/22/18 19:30 103 F H 107 H 20 115/62 96 Weight Weight 68 kg Result Diagrams: 04/23/18 04:15 04/23/18 04:15 <Melodie Bah - Last Filed: 04/23/18 11:52> - Objective Vital Signs & Weight: Vital Signs (12 hours) Temp Pulse Resp BP Pulse Ox 04/23/18 11:00 98.0 F 63 16 93/58 L 100 04/23/18 08:00 97.4 F L 63 16 91/55 L 99 04/23/18 04:00 98.5 F 82 16 96/53 L 98 Weight Weight 68 kg I&O: 04/22/18 04/23/18 04/24/18 06:59 06:59 06:59 Intake Total 3510 Balance 3510 Result Diagrams: 04/23/18 04:15 04/23/18 04:15 <Vaughn Iverson - Last Filed: 04/23/18 12:43> Phys Exam - Physical Examination Constitutional: NAD HEENT: moist MMs Neck: supple Respiratory: no wheezing, clear to auscultation bilateral Cardiovascular: RRR, no significant murmur Gastrointestinal: soft, non-tender, positive bowel sounds Musculoskeletal: no edema, pulses present Neurological: non-focal Golf ball size tender axillary LN on right Psychiatric: normal affect, A&O x 3 Skin: cap refill <2 seconds Deviation from normal: Diffuse rash, wound over right dorsal metatarsalphalangeal joint 1.5cm <Melodie Bah - Last Filed: 04/23/18 11:52> Dx/Plan (1) Open wound of right hand Code(s): S61.401A - UNSPECIFIED OPEN WOUND OF RIGHT HAND, INITIAL ENCOUNTER Status: Acute (2) Tobacco abuse Code(s): Z72.0 - TOBACCO USE Status: Acute (3) Hepatitis C Code(s): B19.20 - UNSPECIFIED VIRAL HEPATITIS C WITHOUT HEPATIC COMA Status: Acute (4) Methamphetamine abuse Code(s): F15.10 - OTHER STIMULANT ABUSE, UNCOMPLICATED Status: Acute - Plan Plan: Sepsis 2/2 Right Hand Cellulitis - Fever and tachycardia overnight with new leukocytosis - Axillary lymphadenopathy - Xray neg for bone involvement - MRI ordered to further evaluate, r/o infection involving joint - Continue Vanc/Zosyn - Blood and Wound Cultures pending - Wound Care consulted - F/u Vanc trough - LR @ 100 - Will switch to inpt - GGT ordered to r/o bone involvement with elevated alk phos Right Hand Cellulitis - Manage as Above Elevated Alk Phos - Likely related to chronic hep C, consider getting GTT to r/o bone involvement Transaminitis - Likely related to chronic hep C Hepatitis C - Diagnosed at prior admission, pt reports he was never dx'ed - Will obtain Hepatitis panel, RPR and HIV as pt continues to use IV drugs and has transaminitis Substance abuse - Uses Meth, last use 04/1618 - Likely source of Hep C infection - Obtain labs as above Tobacco Abuse - Nicotine patch 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 Bah. I agree with the History, Examination, Assessment and Plan documented above with any addition or exceptions noted below. Patient here with sepsis 2/2 hand infection that looks like it could easily involve deeper structures. Continue abx. MRI pending and wound care on board. Will likely consult Hand surgery after MRI results. Spiked high fever overnight and labs suggesting possible osteomyelitis so hopefully MRI will give us definitive diagnosis. Patient needs to avoid illicit substances. <Vaughn Iverson - Last Filed: 04/23/18 12:43>
[2018-04-23] MEDS: Enoxaparin Sodium 40 MG/0.4 ML SYRINGE SC SCH (08:28)
[2018-04-23] MEDS: Lactated Ringer's 1,000 ML IV SCH ×2 (09:10→19:15)
[2018-04-23 11:10] LABS: HIV (1/2) Antibody/Antigen Non-Reactive (NonReactive); HIV 1/2 INDEX 0.21 S/CO (<1.00); Hep A IgM AB Non-Reactive (NonReactive); Hep A IgM S/CO 0.16 S/CO (0-0.79); Hep B Core Total Ab Non-Reactive (NonReactive); Hep B Core Total Index 0.16 S/CO (0-0.79); Hep B Surf Ag Non-Reactive S/CO (NonReactive)
[2018-04-23 12:19] LABS: Syphilis Antibody Index 17.66 S/CO (<1.00 Non-Reactive)
[2018-04-23] MEDS ORDERED: PROPOFOL 200 MG/20 ML VIAL ONE (12:48)
[2018-04-23] MEDS ORDERED: PHENYLEPHRINE-NS 100 MCG/ML 10 ML SYRINGE ONE (12:48)
[2018-04-23] MEDS ORDERED: Ondansetron PF 4 MG/2 ML Vial ONE (12:48)
[2018-04-23] MEDS ORDERED: Lidocaine 1% PF 5 ML VIAL ONE (12:48)
[2018-04-23 13:30] LABS: Syphilis Antibody REACTIVE (Nonreactive)
[2018-04-23 13:42] LABS: Hep C IgG Ab Reflex HepC Qnt (NonReactive); Hep C Index 15.45 S/CO (0-0.79)
[2018-04-23] MEDS: Ibuprofen 600 MG TAB PO PRN (14:39)
[2018-04-23] MEDS ORDERED: Sodium Chloride 0.9% 30 ML ONE (17:37)
[2018-04-23] MEDS ORDERED: Bacitracin Zinc Ointment 30 gm TUBE ONE (17:37)
[2018-04-23] MEDS ORDERED: Bupivacaine PF 0.5% 30 ML VIAL ONE (17:37)
[2018-04-23] MEDS ORDERED: Fentanyl 100 MCG/2 ML VIAL ONE (18:45)
[2018-04-23] MEDS ORDERED: Promethazine HCl 25 MG/ML VIAL SLOW IVP PRN (19:48)
[2018-04-23] MEDS ORDERED: Promethazine HCl 25 MG/ML VIAL IM PRN (19:48)
[2018-04-23] MEDS ORDERED: Ondansetron HCl/PF 4 MG/2 ML Vial IVP PRN (19:48)
[2018-04-23] MEDS ORDERED: Ketorolac Tromethamine 30 MG/ML VIAL ONE (20:02)
[2018-04-23] MEDS: Ketorolac Tromethamine 30 MG/ML VIAL IVP PRN (22:24)
[2018-04-23] MEDS: Nicotine 14 MG PATCH TD SCH (22:24)
[2018-04-24] MEDS: Piperacillin/Tazobactam 3.375 GM in Sodium Chloride 0.9% 100 ML IVPB SCH ×4 (03:20→20:09)
[2018-04-24] MEDS: Ibuprofen 600 MG TAB PO PRN ×2 (03:20→18:45)
[2018-04-24 04:03] LABS: Vancomycin, Trough 5.4 ug/mL
--- NOTE | 2018-04-24 05:13 | OP ---
DATE OF PROCEDURE: 04/23/2018 PREOPERATIVE DIAGNOSES: 1. A 3 cm diameter with full-thickness skin loss overlying the eschar and probably no gross infectio n. 2. No gross infection seen. PROCEDURES PERFORMED: 1. Debridement of wound, down to and including subcutaneous fat. 2. Application of wet to dry dressing intraoperative. ESTIMATED BLOOD LOSS: 5 mL. TOURNIQUET TIME: 5 minutes. No underlying abscess seen. DESCRIPTION OF PROCEDURE: After successful general LMA technique, the limb was exsanguinated, preppe d and draped. Tourniquet was inflated to 250 mmHg pressure and eschar over the area which was 3 cm, almost in diameter and took approximately 3 minutes to gently shell off the nonviable skin and the subcutaneous fat that is healthy. This was confirmed by the copious bleeding when tourniquet was deflated. We then irrigated with 3 liters normal saline antibiotic placed a wet to dry dressing on the wo und after obtaining hemostasis and then left it open for later closure or skin graft.
[2018-04-24] MEDS: Vancomycin HCl 1 GM in Premix Bag 1 BAG IVPB SCH (05:32)
--- NOTE | 2018-04-24 05:53 | PDOC.FM ---
- Subjective Subjective: Had discussion with pt and his partner yesterday about his Hepatitis infection diagnosed at last admission and positive Syphilis test. Although documented pt clearly understood to follow up with GI after discharge pt failed to do so. This is most likely due to lack of insurance. He has no PCP. Reports he did not know he had Hep C infection. Reports receiving vaccine when he went to nursing home, although pt is likely referring to Hep B vaccination. He is concerned about his partner as she is currently with his . child. He thinks he may have contracted Hepatitis C in nursing home when he receivng multiple tattoos, although pt also continues to use IV drugs. It is unclear if his partner does as well. In regards to the syphilis, he does not remember having a chancre at any point, and reports never being treated. He had a negative RPR last year 03/29/17. - Objective MAR Reviewed: Yes Vital Signs & Weight: Vital Signs (12 hours) Temp Pulse Resp BP Pulse Ox 04/24/18 04:00 100.2 F H 94 16 102/51 L 93 L 04/23/18 22:00 98.0 F 83 18 101/53 L 97 04/23/18 20:00 97.8 F 62 14 101/59 L 98 Weight Admit Weight 68 kg Weight 68 kg I&O: 04/22/18 04/23/18 04/24/18 06:59 06:59 06:59 Intake Total 3510 1408 Balance 3510 1408 Result Diagrams: 04/24/18 03:30 04/24/18 03:30 <Melodie Bah - Last Filed: 04/24/18 12:05> - Objective Vital Signs & Weight: Vital Signs (12 hours) Temp Pulse Resp BP BP Pulse Ox 04/24/18 07:46 98.3 F 88 18 110/68 98 04/24/18 04:00 100.2 F H 94 16 102/51 L 93 L Weight Admit Weight 68 kg Weight 68 kg I&O: 04/23/18 04/24/18 04/25/18 06:59 06:59 06:59 Intake Total 3510 1408 Balance 3510 1408 Result Diagrams: 04/24/18 03:30 04/24/18 03:30 <Vaughn Iverson - Last Filed: 04/24/18 12:25> Phys Exam - Physical Examination Constitutional: NAD Neck: supple Respiratory: no wheezing, clear to auscultation bilateral Cardiovascular: RRR, no significant murmur Gastrointestinal: soft, non-tender, positive bowel sounds Musculoskeletal: no edema, pulses present Neurological: non-focal right axillary LN 3cm Psychiatric: normal affect, A&O x 3 Skin: cap refill <2 seconds Deviation from normal: Diffuse maculopapular rash <Melodie Bah - Last Filed: 04/24/18 12:05> Dx/Plan (1) Open wound of right hand Code(s): S61.401A - UNSPECIFIED OPEN WOUND OF RIGHT HAND, INITIAL ENCOUNTER Status: Acute (2) Tobacco abuse Code(s): Z72.0 - TOBACCO USE Status: Acute (3) Hepatitis C Code(s): B19.20 - UNSPECIFIED VIRAL HEPATITIS C WITHOUT HEPATIC COMA Status: Acute (4) Methamphetamine abuse Code(s): F15.10 - OTHER STIMULANT ABUSE, UNCOMPLICATED Status: Acute (5) Syphilis Code(s): A53.9 - SYPHILIS, UNSPECIFIED Status: Acute - Plan Plan: Sepsis 2/2 likely Right Hand Cellulitis vs endocarditis related to IV drug use - Fever and tachycardia overnight with new leukocytosis - Axillary lymphadenopathy - Xray neg for bone involvement - Continue Vanc/Zosyn, adjusted vanc dose to achieve therapeutic level - Blood, Wound Cultures NGTD - LR @ 100 - Wound Care consulted - Hand Surgery, Dr Samaniego has been consulted, taken back for debridement at 1800 04/23 - No gross infection was visualized during debridement, site was left open for later closure or skin graft. - Echo to eval for endocarditis showed mild TR & MR, mildly dilated LA. Nml EF - Will obtain rapid flu Right Hand Cellulitis - Manage as Above Syphilis - Nonreactive 03/29/17 - Pt reports not being treated for syphilis - Consider secondary syphilis with diffuse rash, due to callusing on hands and feet it is difficult to tell if rash extends to palms and soles. 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 Bah. I agree with the History, Examination, Assessment and Plan documented above with any addition or exceptions noted below. Patient here originally for sepsis 2/2 hand infection. However, OR debridement and exploration did not reveal major source of infection. He does have enlarged lymph node and now positive syphilis titer, consider secondary syphilis as cause. Confirmatory testing pending. He does have diffuse rash that could be rash of secondary syphilis. Continue on abx and check flu swab. He most definitely has Hepatitis C. Will consult ID if no major cause of infection identified. Also need to consider inflammation as cause of his fever though that would be unlikely to cause the rigors and chills he is having. <Vaughn Iverson - Last Filed: 04/24/18 12:25>
[2018-04-24] MEDS: Vancomycin HCl 1.25 GM in Sodium Chloride 0.9% 250 ML 250 ML IVPB SCH ×3 (06:19→22:12)
[2018-04-24 06:39] LABS: #Eosinphils 0.1 thou/uL (0.0-0.7); #Lymphocytes 0.9 thou/uL (1.20-3.40); #Monocytes 0.6 thou/uL (0.11-0.59); #Neutrophils 5.3 thou/uL (1.40-6.50); %Basophils 0.2 % (0.0-1.0); %Eosinophils 1.6 % (0.0-10.0); %Lymphocytes 13.4 % (21.0-51.0); %Monocytes 8.6 % (0.0-10.0); %Neutrophils 76.3 % (42.0-75.0); Hemoglobin 11.1 g/dL (14.0-18.0); Mean Corpuscular HGB CONC 31.6 g/dL (32.0-36.0); Mean Corpuscular Hemoglobin 30.2 pg (27.0-31.0); Mean Corpuscular Volume 95.4 fL (78.0-98.0); Mean Platelet Volume 8.3 fL (7.4-10.4); Platelet Count 182 thou/uL (130-400); RBC Distribution Width 13.4 % (11.5-14.5); Red Blood Cell (RBC) Count 3.67 mill/uL (4.70-6.10)
[2018-04-24 06:49] LABS: ALT (SGPT) 29 U/L (8-55); AST (SGOT) 26 U/L (5-34); Albumin 2.6 g/dL (3.5-5.0); Alkaline Phosphatase 198 U/L (40-150); Anion Gap 9 mmol/L (10-20); BUN (Urea Nitrogen) 9 mg/dL (8.9-20.6); Bilirubin, Total 0.3 mg/dL (0.2-1.2); Calc. Creatinine Clearance 112 mL/min (70-130); Calcium 7.8 mg/dL (7.8-10.44); Carbon Dioxide 27 mmol/L (22-29); Chloride 103 mmol/L (98-107); Estimated GFR-MDRD Greater than 90; Globulin 3.5 g/dL (2.4-3.5); Glucose 174 mg/dL (70-105); Potassium 4.2 mmol/L (3.5-5.1); Protein, Total 6.1 g/dL (6.0-8.3); Sodium 135 mmol/L (136-145)
[2018-04-24] MEDS: Lactated Ringer's 1,000 ML IV SCH ×3 (08:08→22:24)
[2018-04-24] MEDS: Enoxaparin Sodium 40 MG/0.4 ML SYRINGE SC SCH (09:23)
[2018-04-24] MEDS: Ketorolac Tromethamine 30 MG/ML VIAL IVP PRN ×2 (10:48→22:11)
[2018-04-24] MEDS ORDERED: Acetaminophen 325 MG TAB PO SCH (13:00)
[2018-04-24] MEDS: Nicotine 14 MG PATCH TD SCH (22:10)
[2018-04-25] MEDS: Piperacillin/Tazobactam 3.375 GM in Sodium Chloride 0.9% 100 ML IVPB SCH ×4 (02:11→20:41)
[2018-04-25] MEDS: Ibuprofen 600 MG TAB PO PRN ×2 (03:21→15:36)
[2018-04-25 05:17] LABS: #Eosinphils 0.1 thou/uL (0.0-0.7); #Lymphocytes 0.8 thou/uL (1.20-3.40); #Monocytes 0.7 thou/uL (0.11-0.59); #Neutrophils 6.8 thou/uL (1.40-6.50); %Basophils 0.3 % (0.0-1.0); %Eosinophils 1.3 % (0.0-10.0); %Lymphocytes 9.9 % (21.0-51.0); %Monocytes 8.1 % (0.0-10.0); %Neutrophils 80.5 % (42.0-75.0); Hemoglobin 10.5 g/dL (14.0-18.0); Mean Corpuscular HGB CONC 32.3 g/dL (32.0-36.0); Mean Corpuscular Hemoglobin 30.7 pg (27.0-31.0); Mean Corpuscular Volume 95.1 fL (78.0-98.0); Mean Platelet Volume 7.6 fL (7.4-10.4); Platelet Count 189 thou/uL (130-400); RBC Distribution Width 13.3 % (11.5-14.5); Red Blood Cell (RBC) Count 3.43 mill/uL (4.70-6.10); White Blood Cell (WBC) Count 8.5 thou/uL (4.8-10.8)
[2018-04-25 05:27] LABS: ALT (SGPT) 23 U/L (8-55); AST (SGOT) 25 U/L (5-34); Albumin 2.5 g/dL (3.5-5.0); Alkaline Phosphatase 146 U/L (40-150); Anion Gap 11 mmol/L (10-20); BUN (Urea Nitrogen) 6 mg/dL (8.9-20.6); Bilirubin, Total 0.5 mg/dL (0.2-1.2); Calc. Creatinine Clearance 112 mL/min (70-130); Calcium 8.2 mg/dL (7.8-10.44); Carbon Dioxide 26 mmol/L (22-29); Chloride 103 mmol/L (98-107); Estimated GFR-MDRD Greater than 90; Globulin 3.7 g/dL (2.4-3.5); Glucose 163 mg/dL (70-105); Potassium 4.1 mmol/L (3.5-5.1); Protein, Total 6.2 g/dL (6.0-8.3); Sodium 136 mmol/L (136-145)
[2018-04-25] MEDS: Vancomycin HCl 1.25 GM in Sodium Chloride 0.9% 250 ML 250 ML IVPB SCH ×3 (05:33→22:02)
[2018-04-25 06:09] LABS: Vancomycin, Trough 15.2 ug/mL
--- NOTE | 2018-04-25 06:46 | PDOC.FM ---
- Subjective Subjective: Pt reports doing well today. He is feeling better. Denies pain. No questions or concerns at this time. - Objective MAR Reviewed: Yes Vital Signs & Weight: Vital Signs (12 hours) Temp Pulse Resp BP Pulse Ox 04/25/18 05:11 99.1 F 04/25/18 04:00 100.2 F H 92 18 117/63 98 04/24/18 20:00 98.6 F 77 18 106/53 L 94 L Weight Admit Weight 68 kg Weight 68 kg I&O: 04/23/18 04/24/18 04/25/18 06:59 06:59 06:59 Intake Total 3510 1408 Balance 3510 1408 Result Diagrams: 04/25/18 04:43 04/25/18 04:43 Phys Exam - Physical Examination Ill appearing covered in with heavy sleeping bag Neck: supple Respiratory: no wheezing, clear to auscultation bilateral Cardiovascular: RRR, no significant murmur Gastrointestinal: soft, non-tender, positive bowel sounds Musculoskeletal: no edema, pulses present right hand bandaged Large right axillary LN No inguinal, cervical or left axillary lymphadenopathy Psychiatric: normal affect, A&O x 3 Dx/Plan (1) Open wound of right hand Code(s): S61.401A - UNSPECIFIED OPEN WOUND OF RIGHT HAND, INITIAL ENCOUNTER Status: Acute (2) Tobacco abuse Code(s): Z72.0 - TOBACCO USE Status: Acute (3) Hepatitis C Code(s): B19.20 - UNSPECIFIED VIRAL HEPATITIS C WITHOUT HEPATIC COMA Status: Acute (4) Methamphetamine abuse Code(s): F15.10 - OTHER STIMULANT ABUSE, UNCOMPLICATED Status: Acute (5) Syphilis Code(s): A53.9 - SYPHILIS, UNSPECIFIED Status: Acute - Plan Plan: Sepsis 2/2 likely Right Hand Cellulitis vs endocarditis related to IV drug use - Right Axillary lymphadenopathy - Xray neg for bone involvement - Continue Vanc/Zosyn - Blood Cultures NGTD - LR @ 100 - Wound Care consulted - Hand Surgery, Dr Samaniego has been consulted, taken back for debridement at 1800 04/23 - No gross infection was visualized during debridement, site was left open for later closure or skin graft. - Echo to eval for endocarditis showed mild TR & MR, mildly dilated LA. Nml EF - Rapid flu neg - Continues to fever, will consult ID - Wound cultures show no organisms Right Hand Cellulitis - Manage as Above Syphilis/ + RPR - Nonreactive 03/29/17 - Pt reports not being treated for syphilis and does not remember primary infection - Consider secondary syphilis with diffuse rash, due to callusing on hands and feet it is difficult to tell if rash extends to palms and soles. 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
[2018-04-25 07:27] LABS: Hemoglobin A1c 5.5 % (4.0-6.0)
[2018-04-25] MEDS: Enoxaparin Sodium 40 MG/0.4 ML SYRINGE SC SCH (08:20)
[2018-04-25] MEDS: Lactated Ringer's 1,000 ML IV SCH (08:30)
[2018-04-25] MEDS: Ketorolac Tromethamine 30 MG/ML VIAL IVP PRN (10:21)
--- NOTE | 2018-04-25 11:59 | PDOC.EVN ---
Attending Addendum - Attending Addendum Date/Time: 04/25/18 0743 I personally evaluated the patient and discussed the management with Dr. Bah. I agree with the History, Examination, Assessment and Plan documented in her progress note with any addition or exceptions noted below. Patient continues to spike fevers despite negative cultures and no obvious source of infection from his hand wound. He continues to have this diffuse rash in the setting of positive screening Syphilis tests. Awaiting confirmatory testing. He only has adenopathy in the R axilla, no other locations. He complains of chronic back pain that is not worsened at this time, and he has no significant bony tenderness on back exam. His echo did not reveal any major abnormalities. Due to concern for infection that we are unable to locate at this time, will consult ID. Continue current abx therapy and supportive care.
[2018-04-25] MEDS: Nicotine 14 MG PATCH TD SCH (20:42)
[2018-04-26] MEDS: Ibuprofen 600 MG TAB PO PRN ×2 (01:58→14:04)
[2018-04-26] MEDS: Piperacillin/Tazobactam 3.375 GM in Sodium Chloride 0.9% 100 ML IVPB SCH ×3 (01:59→13:57)
[2018-04-26] MEDS: Vancomycin HCl 1.25 GM in Sodium Chloride 0.9% 250 ML 250 ML IVPB SCH ×2 (05:35→14:54)
--- NOTE | 2018-04-26 06:23 | PDOC.FM ---
- Subjective Subjective: Continues to feel ill. Had 2 recordered fevers yesterday evening and temp 102.9 this AM. Denies joint pain, TEE, n/v, diarrhea. - Objective MAR Reviewed: Yes Vital Signs & Weight: Vital Signs (12 hours) Temp Pulse Resp BP Pulse Ox 04/26/18 05:19 97.7 F 83 18 118/66 97 04/26/18 01:50 102.8 F H 04/25/18 20:39 98.2 F 62 16 118/71 99 04/25/18 20:28 98.2 F 62 16 118/71 99 Weight Admit Weight 68 kg Weight 68 kg I&O: 04/24/18 04/25/18 04/26/18 06:59 06:59 06:59 Intake Total 1408 Balance 1408 Result Diagrams: 04/26/18 05:23 04/26/18 05:23 <Melodie Bah - Last Filed: 04/26/18 10:08> - Objective Vital Signs & Weight: Vital Signs (12 hours) Temp Pulse Resp BP Pulse Ox 04/26/18 08:00 97.4 F L 60 16 116/74 97 04/26/18 05:19 97.7 F 83 18 118/66 97 04/26/18 01:50 102.8 F H Weight Admit Weight 68 kg Weight 68 kg I&O: 04/25/18 04/26/18 04/27/18 06:59 06:59 06:59 Intake Total 1230 Balance 1230 Result Diagrams: 04/26/18 05:23 04/26/18 05:23 <Vaughn Iverson - Last Filed: 04/26/18 11:11> Phys Exam - Physical Examination resting Neck: supple, full ROM No nuchal rigidity Respiratory: no wheezing, clear to auscultation bilateral Cardiovascular: RRR, no significant murmur Gastrointestinal: soft, non-tender, positive bowel sounds Musculoskeletal: no edema, pulses present No pain with active and passive ROM of all joints. No erythema or swelling over joints Neurological: moves all 4 limbs enlarged right axillary LN Psychiatric: normal affect, A&O x 3 Deviation from normal: diffuse maculopapular rash <Melodie Bah - Last Filed: 04/26/18 10:08> Dx/Plan (1) Open wound of right hand Code(s): S61.401A - UNSPECIFIED OPEN WOUND OF RIGHT HAND, INITIAL ENCOUNTER Status: Acute (2) Tobacco abuse Code(s): Z72.0 - TOBACCO USE Status: Acute (3) Hepatitis C Code(s): B19.20 - UNSPECIFIED VIRAL HEPATITIS C WITHOUT HEPATIC COMA Status: Acute (4) Methamphetamine abuse Code(s): F15.10 - OTHER STIMULANT ABUSE, UNCOMPLICATED Status: Acute (5) Syphilis Code(s): A53.9 - SYPHILIS, UNSPECIFIED Status: Acute - Plan Plan: Sepsis 2/2 likely Right Hand Cellulitis vs endocarditis related to IV drug use - Right Axillary lymphadenopathy - Xray neg for bone involvement - Continue Vanc/Zosyn - Blood Cultures NGTD - LR @ 100 - Wound Care consulted - Hand Surgery, Dr Samaniego has been consulted, taken back for debridement at 1800 04/23 - No gross infection was visualized during debridement, site was left open for later closure or skin graft. - Echo to eval for endocarditis showed mild TR & MR, mildly dilated LA. Nml EF - Rapid flu neg - ID consulted - Wound cultures show no organisms - Will recheck HIV, there is a chance pt could have been within window period the first time this was checked - Ordered repeat blood and urine cultures, Monospot, F. tularensis Ab, Bartonella. - Will check UDS, pt reports last drug use 04/16/18 Right Hand Cellulitis - Manage as Above Syphilis/ + RPR - Nonreactive 03/29/17 - Pt reports not being treated for syphilis and does not remember primary infection - Consider secondary syphilis with diffuse rash, due to callusing on hands and feet it is difficult to tell if rash extends to palms and soles. 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 Bah. I agree with the History, Examination, Assessment and Plan documented above with any addition or exceptions noted below. Patient continues to have spiking fevers despite negative cultures and normal WBC. Syphilis confirmation pending. ID consulted. Will continue abx therapy. Fever currently without a known source. <Vaughn Iverson - Last Filed: 04/26/18 11:11>
[2018-04-26 06:28] LABS: ALT (SGPT) 39 U/L (8-55); AST (SGOT) 51 U/L (5-34); Albumin 2.7 g/dL (3.5-5.0); Alkaline Phosphatase 134 U/L (40-150); Anion Gap 10 mmol/L (10-20); BUN (Urea Nitrogen) 7 mg/dL (8.9-20.6); Bilirubin, Total 0.4 mg/dL (0.2-1.2); Calc. Creatinine Clearance 110 mL/min (70-130); Calcium 8.5 mg/dL (7.8-10.44); Carbon Dioxide 26 mmol/L (22-29); Chloride 103 mmol/L (98-107); Estimated GFR-MDRD Greater than 90; Globulin 3.9 g/dL (2.4-3.5); Glucose 134 mg/dL (70-105); Protein, Total 6.6 g/dL (6.0-8.3); Sodium 135 mmol/L (136-145)
[2018-04-26 06:47] LABS: #Eosinphils 0.1 thou/uL (0.0-0.7); #Lymphocytes 1.3 thou/uL (1.20-3.40); #Neutrophils 5.5 thou/uL (1.40-6.50); %Basophils 0.3 % (0.0-1.0); %Eosinophils 1.1 % (0.0-10.0); %Lymphocytes 16.5 % (21.0-51.0); %Monocytes 12.3 % (0.0-10.0); %Neutrophils 69.8 % (42.0-75.0); Hemoglobin 11.2 g/dL (14.0-18.0); Mean Corpuscular HGB CONC 32.4 g/dL (32.0-36.0); Mean Corpuscular Hemoglobin 30.5 pg (27.0-31.0); Mean Corpuscular Volume 94.3 fL (78.0-98.0); Mean Platelet Volume 7.5 fL (7.4-10.4); PLT Morphology Comment Appears Decreased; Platelet Count 123 thou/uL (130-400); RBC Distribution Width 13.4 % (11.5-14.5); Red Blood Cell (RBC) Count 3.67 mill/uL (4.70-6.10); White Blood Cell (WBC) Count 7.9 thou/uL (4.8-10.8)
[2018-04-26] MEDS: Enoxaparin Sodium 40 MG/0.4 ML SYRINGE SC SCH (07:43)
[2018-04-26] MEDS: Ketorolac Tromethamine 30 MG/ML VIAL IVP PRN (10:59)
[2018-04-26 11:01] LABS: Amphetamine Not Detected (NotDetected); Barbiturates Screen Not Detected (NotDetected); Benzodiazepine Screen Not Detected (NotDetected); Cocaine Metabolite Screen Not Detected (NotDetected); Medtox Control Line Valid? VALID (VALID); Medtox Reader # READER 4; Methadone Not Detected (NotDetected); Methamphetamine Not Detected (NotDetected); Opiate Screen Not Detected (NotDetected); Oxycodone Screen Not Detected (NotDetected); Phencyclidine (PCP) Not Detected (NotDetected); THC/Cannabinoid Screen Not Detected (NotDetected); Tricyclic Screen Not Detected (NotDetected)
[2018-04-26 12:16] LABS: MONO NEGATIVE CONTROL ZONE White (Negative) (White); MONO POSITIVE CONTROL Pink Line (Positive) (PINK/RED); Mononucleosis NEGATIVE (NEGATIVE)
[2018-04-26 12:36] LABS: Vancomycin, Trough 6.9 ug/mL
[2018-04-26 12:54] LABS: HIV (1/2) Antibody/Antigen Non-Reactive (NonReactive); HIV 1/2 INDEX 0.26 S/CO (<1.00)
--- NOTE | 2018-04-26 13:27 | RAD ---
SINGLE VIEW OF THE CHEST: Comparison: None. History: Fever. FINDINGS: Single view of the chest shows a normal sized cardiomediastinal silhouette. There is no evidence of c onsolidation, mass, or pleural effusion. The bones are unremarkable. IMPRESSION: No evidence of acute cardiopulmonary disease. POS: [facility]
[2018-04-26] MEDS ORDERED: Bicillin LA 2.4 MILL.UNITS/4 ML SYRINGE IM SCH (15:30)
--- NOTE | 2018-04-26 16:38 | CON ---
DATE OF CONSULTATION: 04/26/2018 REASON FOR CONSULTATION: Possible sepsis. HISTORY OF PRESENT ILLNESS: A 43-year-old patient admitted on 04/22/2018 with a history of prior IV drug use a few years ago and newly developed inflammatory process right hand following injury while cutting down a tree. He developed inflammatory changes. He also noticed a swollen lymph node in the right axillary region and then developed a skin eruption in arms and trunk. He was admitted. Dr. Samaniego has carried out limited debridement. Appeared to be superficial skin loss overlying the eschar in the right hand with no gross infection seen. The patient denies headaches, no visual symptoms, sore throat, odynophagia, dysphagia, no vomiting. No toothache, no back pain, no dyspnea or chest pain, no abdominal pain. Voiding without difficulty. No diarrhea. He has noticed this skin eruption throughout his body and the lymphadenopathy in the right side for the past few days. PAST MEDICAL HISTORY: Negative otherwise. SURGICAL HISTORY: Negative. FAMILY HISTORY: Noncontributory. SOCIAL HISTORY: Smokes daily. Uses methamphetamine, occasionally by inhalation. Used IV cocaine and methamphetamine many years ago, but has not recurred reportedly. CURRENT MEDICATIONS: Include Lovenox, Motrin, Toradol, Nicoderm, Zosyn, and vancomycin. PHYSICAL EXAMINATION: VITAL SIGNS: T-max 102.8-103, blood 107/64, pulse 73, respirations 18, O2 sat 97%. SKIN: Examination shows small little macular lesions scattered throughout the body, abdomen, chest, and appendicular structures. The patient has a right- sided large axillary lymph node measuring about 3.5 to 4 cm rubbery consistency. HEENT: Ocular movements are conjugate. Pupils are equal. Oral cavity moist. Numerous teeth in place in fairly decent shape. NECK: Supple, no jugular vein distention or carotid bruits. LUNGS: Symmetric clear breath sounds. HEART: S1, S2, regular rate. No S3, S4. ABDOMEN: Soft, not distended or tender. No ascites. No bladder distention. EXTREMITIES: No joint inflammatory process noted. NEUROLOGIC: Nonfocal including cognitive function. LABORATORY DATA: White cell count 11.6 down to 7.9, hemoglobin 11, platelets 123,000, 69% neutrophils, 16% lymphocytes. Sodium 135, creatinine 0.83, AST 51 , ALT 39, albumin 2.7, alkaline phosphatase down to 134. Toxicology was negative, hepatitis C antibody positive, RPR was positive 128. HIV is seronegative. We have a culture from the right hand except for a few mixed skin tana. Influenza A and B were negative. Two sets of blood cultures, no growth thus far. IMAGING STUDIES: We have a hand x-ray with no bone lesions and a chest x-ray with no evidence of acute cardiopulmonary disease. ASSESSMENT: 1. Previous IV drug use history, now with current methamphetamine use intermittently. 2. Injury to the right hand, which appears to be minor without evidence of cellulitis or abscess formation or other deeper involvement. 3. Lymphadenopathy, right axillary region which seems to be subacute. 4. Diffuse macular skin rash. 5. Positive syphilis serology. 6. Positive hepatitis C serology. 7. Fever. DISCUSSION: Differential diagnosis includes secondary syphilis with a syphilitic lymphadenitis at the more likely scenario. Lymphoma would be another possibility with B symptoms (that is less likely). Hepatitis C needs to be worked up to see if he would require treatment and we will submit virus RNA PCR and genotype. Discontinue broad spectrum antimicrobials and switch him to Bicillin LA IM. May need a lymph node evaluated depending on clinical response to rule out lymphoproliferative disorder. Other possibilities including the possibility of ehrlichia rickettsiae, Bartonella infection to be considered as well and we will go ahead and add doxycycline in view of mild thrombocytopenia. MTDD
[2018-04-26] MEDS ORDERED: Vancomycin HCl 1.25 GM in Sodium Chloride 0.9% 250 ML 250 ML IVPB SCH (20:00)
[2018-04-26] MEDS: Doxycycline 100 MG CAP PO SCH (20:59)
[2018-04-26] MEDS: Nicotine 14 MG PATCH TD SCH (21:00)
[2018-04-27] MEDS: Ibuprofen 600 MG TAB PO PRN ×2 (00:31→12:47)
[2018-04-27 05:09] LABS: ALT (SGPT) 46 U/L (8-55); AST (SGOT) 57 U/L (5-34); Albumin 2.8 g/dL (3.5-5.0); Alkaline Phosphatase 138 U/L (40-150); Anion Gap 9 mmol/L (10-20); BUN (Urea Nitrogen) 5 mg/dL (8.9-20.6); Bilirubin, Total 0.3 mg/dL (0.2-1.2); Calc. Creatinine Clearance 117 mL/min (70-130); Calcium 8.5 mg/dL (7.8-10.44); Carbon Dioxide 29 mmol/L (22-29); Chloride 103 mmol/L (98-107); Estimated GFR-MDRD Greater than 90; Globulin 4.2 g/dL (2.4-3.5); Glucose 129 mg/dL (70-105); Potassium 4.3 mmol/L (3.5-5.1); Sodium 137 mmol/L (136-145)
[2018-04-27 05:40] LABS: #Eosinphils 0.2 thou/uL (0.0-0.7); #Lymphocytes 1.4 thou/uL (1.20-3.40); #Monocytes 0.9 thou/uL (0.11-0.59); #Neutrophils 5.7 thou/uL (1.40-6.50); %Basophils 0.5 % (0.0-1.0); %Eosinophils 2.7 % (0.0-10.0); %Lymphocytes 16.8 % (21.0-51.0); Hemoglobin 11.4 g/dL (14.0-18.0); Mean Corpuscular HGB CONC 32.3 g/dL (32.0-36.0); Mean Corpuscular Hemoglobin 30.2 pg (27.0-31.0); Mean Corpuscular Volume 93.4 fL (78.0-98.0); Mean Platelet Volume 8.3 fL (7.4-10.4); PLT Morphology Comment Appears Decreased; Platelet Count 82 thou/uL (130-400); RBC Distribution Width 13.3 % (11.5-14.5); Red Blood Cell (RBC) Count 3.78 mill/uL (4.70-6.10); White Blood Cell (WBC) Count 8.2 thou/uL (4.8-10.8)
--- NOTE | 2018-04-27 05:55 | PDOC.FM ---
- Subjective Subjective: Feels much better today. Reports one fever overnight. Appetite is good. Denies pain, SOB. - Objective MAR Reviewed: Yes Vital Signs & Weight: Vital Signs (12 hours) Temp Pulse Resp BP Pulse Ox 04/27/18 05:00 97.8 F 63 16 96/66 97 04/27/18 01:30 99.1 F 04/27/18 00:20 100.9 F H 87 18 111/63 93 L 04/26/18 20:43 98.4 F 78 16 121/64 96 Weight Admit Weight 68 kg Weight 68 kg I&O: 04/25/18 04/26/18 04/27/18 06:59 06:59 06:59 Intake Total 1230 1300 Balance 1230 1300 Result Diagrams: 04/27/18 04:14 04/27/18 04:14 <Melodie Bah - Last Filed: 04/27/18 09:57> - Objective Vital Signs & Weight: Vital Signs (12 hours) Temp Pulse Resp BP Pulse Ox 04/27/18 09:31 97 04/27/18 07:58 97.9 F 57 L 18 104/69 97 04/27/18 05:00 97.8 F 63 16 96/66 97 04/27/18 01:30 99.1 F 04/27/18 00:20 100.9 F H 87 18 111/63 93 L Weight Admit Weight 68 kg Weight 68 kg I&O: 04/26/18 04/27/18 04/28/18 06:59 06:59 06:59 Intake Total 1230 2300 Balance 1230 2300 Result Diagrams: 04/27/18 04:14 04/27/18 04:14 <Vaughn Iverson - Last Filed: 04/27/18 10:23> Phys Exam - Physical Examination Constitutional: NAD Neck: supple Respiratory: no wheezing, clear to auscultation bilateral Cardiovascular: RRR, no significant murmur Gastrointestinal: soft, non-tender, positive bowel sounds Neurological: moves all 4 limbs Psychiatric: normal affect, A&O x 3 <Melodie Bah - Last Filed: 04/27/18 09:57> Dx/Plan (1) Open wound of right hand Code(s): S61.401A - UNSPECIFIED OPEN WOUND OF RIGHT HAND, INITIAL ENCOUNTER Status: Acute (2) Tobacco abuse Code(s): Z72.0 - TOBACCO USE Status: Acute (3) Hepatitis C Code(s): B19.20 - UNSPECIFIED VIRAL HEPATITIS C WITHOUT HEPATIC COMA Status: Acute (4) Methamphetamine abuse Code(s): F15.10 - OTHER STIMULANT ABUSE, UNCOMPLICATED Status: Acute (5) Syphilis Code(s): A53.9 - SYPHILIS, UNSPECIFIED Status: Acute - Plan Plan: Sepsis 2/2 likely Right Hand Cellulitis vs Syphilis vs - Right Axillary lymphadenopathy - Blood Cultures NGTD@ 48hrs, Wound cx no organisms, repeat Bcx & Ucx pending - Wound Care consulted - Echo to eval for endocarditis showed mild TR & MR, mildly dilated LA. Nml EF - Rapid flu, monospot neg - ID consulted, Dr Jara, apprec recs - F. tularensis Ab, Bartonella pending - Treponema pallidum Ab positive, tx'ed with 1 dose Penicillin G IM, will need 2 more doses 1wk apart - Vanc & Zosyn D/c'ed 04/26 - Started Doxycyline 04/26 as ehrlichia, rickettsiae and Bartonella in ddx and pt with mild thrombocytopenia Right Hand Cellulitis - Xray neg for bone involvement - Hand Surgery, Dr Samaniego has been consulted, taken back for debridement at 1800 04/23 - No gross infection was visualized during debridement, site was left open for later closure or skin graft. - Will need skin graft sometime next week - Wound cx with no organisms Syphilis/ + RPR - Nonreactive 03/29/17 - Pt reports not being treated for syphilis and does not remember primary infection - Consider secondary syphilis with diffuse rash, due to callusing on hands and feet it is difficult to tell if rash extends to palms and soles. - Treponema pallidum Ab positive, tx'ed with 1 dose Penicillin G IM, will need 2 more doses 1wk apart - Consulted CM to help set pt up with PCP for outpt injections Elevated Alk Phos - Likely related to chronic hep C - GGT was high supporting this Transaminitis - Likely related to chronic hep C Hepatitis C - Diagnosed at prior admission, pt never followed up - Hep C + on repeat lab - Hep A,B, HIV neg - Dr Jara would like Hep C to be worked up to see if pt would require tx. - vRNA PCR and genotype pending - HCV RNA during 03/2017 hospitalization: 12,000,000 Thrombocytopenia - Initially: 286. 82 today - ITP vs response to B. 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 Bah. I agree with the History, Examination, Assessment and Plan documented above with any addition or exceptions noted below. Patient feeling improved today. Confirmation of syphilis positive, and he has received IM PCN. Lower fever curve today. Some other infectious lab panels still pending. ID on board and will see if they have further recommendations before we consider discharge. Continue wound care as needed. <Vaughn Iverson - Last Filed: 04/27/18 10:23>
[2018-04-27] MEDS: Doxycycline 100 MG CAP PO SCH ×2 (09:25→19:53)
[2018-04-27] MEDS: Enoxaparin Sodium 40 MG/0.4 ML SYRINGE SC SCH (09:25)
--- NOTE | 2018-04-27 18:16 | PRG ---
DATE OF SERVICE: 04/27/2018 Feeling about the same. PHYSICAL EXAMINATION: His T-max actually was 100.9 earlier today, blood pressure 98/58, pulse 68, respirations 18, O2 sat 1 00% lymph nodes about the same. LUNGS: Clear. HEART: S1, S2, regular rate. ABDOMEN: Soft, not distended. EXTREMITIES: Skin lesions are fading. White cell count 8.2, hemoglobin 11, platelets 82,000. Sodium 137, creatinine 0.78, AST 57. ASSESSMENT AND DISCUSSION: 1. IV drug use history. 2. Chronic hepatitis C. 3. Syphilis secondary to lymphadenitis versus a lymphoma, which is less likely. 4. Macular skin rash secondary to syphilis and fever seemed to be due to the above as well. The patient has been treated with one dose of Bicillin to be continued in the outpatient setting. Co ntinue doxycycline for a total of 2 weeks for possible associated intracellular bacterial infection. Bartonella henselae is a possibility. Intracellular bacteria such as Ehrlichia rickettsia is less l ikely, but not ruled out.
[2018-04-27] MEDS: Nicotine 14 MG PATCH TD SCH (19:54)
[2018-04-27] MEDS: Ketorolac Tromethamine 30 MG/ML VIAL IVP PRN (23:26)
[2018-04-28 06:08] LABS: ALT (SGPT) 47 U/L (8-55); AST (SGOT) 52 U/L (5-34); Alkaline Phosphatase 137 U/L (40-150); Anion Gap 11 mmol/L (10-20); BUN (Urea Nitrogen) 7 mg/dL (8.9-20.6); Bilirubin, Total 0.3 mg/dL (0.2-1.2); Calc. Creatinine Clearance 110 mL/min (70-130); Calcium 8.9 mg/dL (7.8-10.44); Carbon Dioxide 27 mmol/L (22-29); Chloride 101 mmol/L (98-107); Estimated GFR-MDRD Greater than 90; Globulin 4.3 g/dL (2.4-3.5); Glucose 164 mg/dL (70-105); Potassium 4.1 mmol/L (3.5-5.1); Protein, Total 7.3 g/dL (6.0-8.3); Sodium 135 mmol/L (136-145)
[2018-04-28 06:15] LABS: #Eosinphils 0.2 thou/uL (0.0-0.7); #Lymphocytes 1.4 thou/uL (1.20-3.40); #Neutrophils 4.4 thou/uL (1.40-6.50); %Basophils 0.1 % (0.0-1.0); %Eosinophils 2.9 % (0.0-10.0); %Lymphocytes 20.1 % (21.0-51.0); %Monocytes 13.6 % (0.0-10.0); %Neutrophils 63.3 % (42.0-75.0); Hemoglobin 11.4 g/dL (14.0-18.0); Mean Corpuscular HGB CONC 31.4 g/dL (32.0-36.0); Mean Corpuscular Hemoglobin 29.5 pg (27.0-31.0); Mean Corpuscular Volume 93.9 fL (78.0-98.0); Mean Platelet Volume 9.1 fL (7.4-10.4); PLT Morphology Comment Appears Decreased; Platelet Count 66 thou/uL (130-400); RBC Distribution Width 13.6 % (11.5-14.5); Red Blood Cell (RBC) Count 3.88 mill/uL (4.70-6.10)
--- NOTE | 2018-04-28 06:15 | PDOC.FM ---
- Subjective Subjective: Denies fever, chills. Feels better than he has the past few days. Reports walking outside yesterday. No questions or concerns at this time. - Objective MAR Reviewed: Yes Vital Signs & Weight: Vital Signs (12 hours) Temp Pulse Resp BP Pulse Ox 04/27/18 20:35 98.5 F 70 16 135/77 95 04/27/18 20:00 98 Weight Admit Weight 68 kg Weight 68 kg I&O: 04/26/18 04/27/18 04/28/18 06:59 06:59 06:59 Intake Total 1230 2300 720 Balance 1230 2300 720 Result Diagrams: 04/28/18 03:24 04/28/18 03:24 <Melodie Bah - Last Filed: 04/28/18 07:54> - Objective Vital Signs & Weight: Vital Signs (12 hours) Temp Pulse Resp BP Pulse Ox 04/28/18 07:36 98.4 F 70 18 104/62 97 Weight Admit Weight 68 kg Weight 68 kg I&O: 04/27/18 04/28/18 04/29/18 06:59 06:59 06:59 Intake Total 2300 720 Balance 2300 720 Result Diagrams: 04/28/18 03:24 04/28/18 03:24 <Vaughn Iverson - Last Filed: 04/28/18 10:03> Phys Exam - Physical Examination Constitutional: NAD Neck: supple Respiratory: no wheezing, clear to auscultation bilateral Cardiovascular: RRR, no significant murmur Gastrointestinal: soft, non-tender, positive bowel sounds Enlarged LN right axilla Psychiatric: normal affect, A&O x 3 <Melodie Bah - Last Filed: 04/28/18 07:54> Dx/Plan (1) Syphilis Code(s): A53.9 - SYPHILIS, UNSPECIFIED Status: Acute (2) Open wound of right hand Code(s): S61.401A - UNSPECIFIED OPEN WOUND OF RIGHT HAND, INITIAL ENCOUNTER Status: Acute (3) Tobacco abuse Code(s): Z72.0 - TOBACCO USE Status: Acute (4) Hepatitis C Code(s): B19.20 - UNSPECIFIED VIRAL HEPATITIS C WITHOUT HEPATIC COMA Status: Acute (5) Methamphetamine abuse Code(s): F15.10 - OTHER STIMULANT ABUSE, UNCOMPLICATED Status: Acute - Plan Plan: Sepsis 2/2 likely Right Hand Cellulitis vs Syphilis vs - Right Axillary lymphadenopathy - Blood Cultures NGTD@ 48hrs, Wound cx no organisms, repeat Bcx & Ucx NGTD @24hr - Wound Care consulted - Echo to eval for endocarditis showed mild TR & MR, mildly dilated LA. Nml EF - Rapid flu, monospot neg - ID consulted, Dr Jara, apprec recs - F. tularensis Ab, Bartonella pending - Treponema pallidum Ab positive, tx'ed with 1 dose Penicillin G IM 04/26, will need 2 more doses 1wk apart - Vanc & Zosyn (D/c'ed 04/26) - Continue Doxycyline (started 04/26) Right Hand Cellulitis - Xray neg for bone involvement - Hand Surgery, Dr Samaniego has been consulted, taken back for debridement at 1800 04/23 - No gross infection was visualized during debridement, site was left open for later closure or skin graft. - Will need skin graft sometime next week - Wound cx with no organisms Syphilis/ + RPR - Nonreactive 03/29/17 - Pt reports not being treated for syphilis and does not remember primary infection - Consider secondary syphilis with diffuse rash, due to callusing on hands and feet it is difficult to tell if rash extends to palms and soles. - Treponema pallidum Ab positive, tx'ed with 1 dose Penicillin G IM, will need 2 more doses 1wk apart - Consulted CM to help set pt up with PCP for outpt injections Elevated Alk Phos - Likely related to chronic hep C - GGT was high supporting this Transaminitis - Likely related to chronic hep C Hepatitis C - Diagnosed at prior admission, pt never followed up - Hep C + on repeat lab - Hep A,B, HIV neg - Dr Jara would like Hep C to be worked up to see if pt would require tx. - vRNA PCR and genotype pending - HCV RNA during 03/2017 hospitalization: 12,000,000 Thrombocytopenia - Initially: 286. 82 today - ITP vs response to B. 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 Bah. I agree with the History, Examination, Assessment and Plan documented above with any addition or exceptions noted below. Patient improving, fever curve downtrending. Plt count continues to downtrend which could be from Hep C or bacterial infection. Continue treatment for Syphilis and will need continued follow up outpt. Continue doxycycline. Some send out labs still pending. Encourage ambulation. <Vaughn Iverson - Last Filed: 04/28/18 10:03>
[2018-04-28] MEDS: Enoxaparin Sodium 40 MG/0.4 ML SYRINGE SC SCH (09:30)
[2018-04-28] MEDS: Doxycycline 100 MG CAP PO SCH ×2 (09:32→20:07)
[2018-04-28 12:22] LABS: Chlamydia by PCR Not Detected (NotDetected); GC by PCR Not Detected (NotDetected)
[2018-04-28] MEDS: Ibuprofen 600 MG TAB PO PRN (18:02)
[2018-04-28] MEDS: Nicotine 14 MG PATCH TD SCH (19:09)
[2018-04-28 21:06] LABS: Hep C PCR-Quant HCV Not Detected IU/mL (.)
[2018-04-29 05:40] LABS: #Eosinphils 0.4 thou/uL (0.0-0.7); #Lymphocytes 1.8 thou/uL (1.20-3.40); #Monocytes 1.3 thou/uL (0.11-0.59); #Neutrophils 6.1 thou/uL (1.40-6.50); %Basophils 0.4 % (0.0-1.0); %Eosinophils 4.2 % (0.0-10.0); %Lymphocytes 18.6 % (21.0-51.0); %Monocytes 13.5 % (0.0-10.0); %Neutrophils 63.4 % (42.0-75.0); Hemoglobin 11.7 g/dL (14.0-18.0); Mean Corpuscular HGB CONC 31.5 g/dL (32.0-36.0); Mean Corpuscular Hemoglobin 29.5 pg (27.0-31.0); Mean Corpuscular Volume 93.8 fL (78.0-98.0); Mean Platelet Volume 9.6 fL (7.4-10.4); Platelet Count 104 thou/uL (130-400); RBC Distribution Width 13.7 % (11.5-14.5); Red Blood Cell (RBC) Count 3.97 mill/uL (4.70-6.10); White Blood Cell (WBC) Count 9.6 thou/uL (4.8-10.8)
--- NOTE | 2018-04-29 06:24 | PDOC.FM ---
Addendum entered and electronically signed by Melodie Bah MD 04/29/18 11:34 : Dr Samaniego will see pt today, plan for skin graft tomorrow morning. Likely discharge after. Original Note: - Subjective Subjective: Feeling well today, would like to go home. Reports axillary lymph node is decreasing in size. Denies fever, chills. Rash is improving. - Objective MAR Reviewed: Yes Vital Signs & Weight: Vital Signs (12 hours) Temp Pulse Resp BP Pulse Ox 04/28/18 20:00 97.7 F 75 18 101/62 97 Weight Admit Weight 68 kg Weight 68 kg I&O: 04/27/18 04/28/18 04/29/18 06:59 06:59 06:59 Intake Total 2300 720 1080 Balance 2300 720 1080 Result Diagrams: 04/29/18 05:02 04/28/18 03:24 <Melodie Bah - Last Filed: 04/29/18 08:40> - Objective Vital Signs & Weight: Vital Signs (12 hours) Temp Pulse Resp BP Pulse Ox 04/30/18 05:45 98.1 F 54 L 16 98/59 L 96 Weight Admit Weight 68 kg Weight 68 kg I&O: 04/29/18 04/30/18 05/01/18 06:59 06:59 06:59 Intake Total 1080 1080 Balance 1080 1080 Result Diagrams: 04/30/18 03:47 04/28/18 03:24 <Juliocesar Barcenas - Last Filed: 04/30/18 08:16> Phys Exam - Physical Examination Constitutional: NAD Neck: supple Respiratory: no wheezing, clear to auscultation bilateral Cardiovascular: RRR, no significant murmur Gastrointestinal: soft, non-tender, positive bowel sounds Musculoskeletal: no edema Right axillary enlarged LN Psychiatric: normal affect, A&O x 3 Deviation from normal: rash improving <Melodie Bah - Last Filed: 04/29/18 08:40> Dx/Plan (1) Syphilis Code(s): A53.9 - SYPHILIS, UNSPECIFIED Status: Acute (2) Open wound of right hand Code(s): S61.401A - UNSPECIFIED OPEN WOUND OF RIGHT HAND, INITIAL ENCOUNTER Status: Acute (3) Tobacco abuse Code(s): Z72.0 - TOBACCO USE Status: Acute (4) Hepatitis C Code(s): B19.20 - UNSPECIFIED VIRAL HEPATITIS C WITHOUT HEPATIC COMA Status: Acute (5) Methamphetamine abuse Code(s): F15.10 - OTHER STIMULANT ABUSE, UNCOMPLICATED Status: Acute - Plan Plan: Sepsis 2/2 likely Right Hand Cellulitis vs Syphilis vs - Right Axillary lymphadenopathy - Blood Cultures NGTD@ 48hrs, Wound cx no organisms, repeat Bcx & Ucx NGTD @24hr - Wound Care consulted - Echo to eval for endocarditis showed mild TR & MR, mildly dilated LA. Nml EF - Rapid flu, monospot, G/C neg - ID consulted, Dr Jara, apprec recs - F. tularensis Ab, Bartonella pending - Treponema pallidum Ab positive, tx'ed with 1 dose Penicillin G IM 04/26, will need 2 more doses 1wk apart - Vanc & Zosyn (D/c'ed 04/26) - Continue Doxycyline (started 04/26) Right Hand Cellulitis - Xray neg for bone involvement - Hand Surgery, Dr Samaniego has been consulted, taken back for debridement at 1800 04/23 - No gross infection was visualized during debridement, site was left open for later closure or skin graft. 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 Syphilis - Pt does not remember primary infection - Secondary syphilis with diffuse rash - Treponema pallidum Ab positive, tx'ed with 1 dose Penicillin G IM 04/26, will need 2 more doses 1wk apart - Consulted CM to help set pt up with PCP for outpt injections Transaminitis - Likely related to chronic hep C Elevated Alk Phos, resolved - Likely related to chronic hep C - GGT was high supporting this Hepatitis C - Diagnosed at prior admission, pt never followed up - Hep C + on repeat lab - Hep A,B, HIV neg - Dr Jara would like Hep C to be worked up to see if pt would require tx. - vRNA PCR and genotype pending - HCV RNA during 03/2017 hospitalization: 12,000,000 Thrombocytopenia - Initially: 286. As low as 66, now up trending 104 - ITP vs response to B. 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 Bah yesterday morning. I agree with the History, Examination, Assessment and Plan documented above with any addition or exceptions noted below. <Juliocesar Barcenas - Last Filed: 04/30/18 08:16>
[2018-04-29] MEDS: Enoxaparin Sodium 40 MG/0.4 ML SYRINGE SC SCH (08:07)
[2018-04-29] MEDS: Doxycycline 100 MG CAP PO SCH ×2 (08:07→21:36)
[2018-04-29 14:17] LABS: Bartonella henselae IgG Negative titer (Neg:<1:320); Bartonella henselae IgM Negative titer (Neg:<1:100); Bartonella quintana IgG Negative titer (Neg:<1:320); Bartonella quintana IgM Negative titer (Neg:<1:100)
[2018-04-29] MEDS: Ibuprofen 600 MG TAB PO PRN (18:35)
[2018-04-29] MEDS: Nicotine 14 MG PATCH TD SCH (21:37)
[2018-04-30 05:15] LABS: Band 8 % (5-11); Eosinophils 3 % (0-10); Hemoglobin 11.5 g/dL (14.0-18.0); Lymphocytes 28 % (21-51); MDiff Complete? YES; Mean Corpuscular Hemoglobin 30.3 pg (27.0-31.0); Mean Corpuscular Volume 94.6 fL (78.0-98.0); Mean Platelet Volume 9.5 fL (7.4-10.4); Metamyelocyte 3 % (0-0); Monocytes 10 % (0-10); Myelocyte 2 % (0-0); Neutrophil 46 % (42-75); PLT Morphology Comment Appears Decreased; Platelet Count 110 thou/uL (130-400); Polychromasia SLIGHT = 2-3 cells (100X) (0-2/hpf); RBC Distribution Width 14.7 % (11.5-14.5); Red Blood Cell (RBC) Count 3.81 mill/uL (4.70-6.10); White Blood Cell (WBC) Count 9.9 thou/uL (4.8-10.8)
--- NOTE | 2018-04-30 06:55 | PDOC.FM ---
- Subjective Subjective: Mr Palma is down in the OR this morning with Dr Samaniego for skin graft. - Objective MAR Reviewed: Yes Vital Signs & Weight: Vital Signs (12 hours) Temp Pulse Resp BP Pulse Ox 04/30/18 05:45 98.1 F 54 L 16 98/59 L 96 Weight Admit Weight 68 kg Weight 68 kg I&O: 04/28/18 04/29/18 04/30/18 06:59 06:59 06:59 Intake Total 720 1080 1080 Balance 720 1080 1080 Result Diagrams: 04/30/18 03:47 04/28/18 03:24 <Melodie Bah - Last Filed: 04/30/18 13:30> - Objective Vital Signs & Weight: Weight Admit Weight 68 kg Weight 68 kg I&O: 04/30/18 05/01/18 05/02/18 06:59 06:59 06:59 Intake Total 1080 Balance 1080 Result Diagrams: 04/30/18 03:47 04/28/18 03:24 <Juliocesar Barcenas - Last Filed: 05/01/18 09:00> Dx/Plan (1) Syphilis Code(s): A53.9 - SYPHILIS, UNSPECIFIED Status: Acute (2) Open wound of right hand Code(s): S61.401A - UNSPECIFIED OPEN WOUND OF RIGHT HAND, INITIAL ENCOUNTER Status: Acute (3) Tobacco abuse Code(s): Z72.0 - TOBACCO USE Status: Acute (4) Hepatitis C Code(s): B19.20 - UNSPECIFIED VIRAL HEPATITIS C WITHOUT HEPATIC COMA Status: Acute (5) Methamphetamine abuse Code(s): F15.10 - OTHER STIMULANT ABUSE, UNCOMPLICATED Status: Acute - Plan Plan: Sepsis 2/2 likely Right Hand Cellulitis vs Syphilis - Right Axillary lymphadenopathy - Blood Cultures NGTD@ 48hrs, Wound cx no organisms, repeat Bcx & Ucx NGTD @24hr - Wound Care consulted - Echo to eval for endocarditis showed mild TR & MR, mildly dilated LA. Nml EF - Rapid flu, monospot, G/C, Bartonella neg - ID consulted, Dr Jara, apprec recs - F. tularensis Ab pending - Treponema pallidum Ab positive, tx'ed with 1 dose Penicillin G IM 04/26 - Vanc & Zosyn (D/c'ed 04/26) - Continue Doxycyline (started 04/26) Right Hand Cellulitis - Xray neg for bone involvement - Hand Surgery, Dr Samaniego has been consulted, taken back for debridement at 1800 04/23 - No gross infection was visualized during debridement, site was left open for later closure or skin graft. - Will need skin graft sometime this week - Wound cx with no organisms - Skin Graft today by Dr Samaniego then plan to D/c Syphilis - Pt does not remember primary infection - Secondary syphilis with diffuse rash - Treponema pallidum Ab positive, tx'ed with 1 dose Penicillin G IM 04/26 - Due for 2nd dose 05/03, CM arranging f/u Transaminitis - Likely related to chronic hep C Elevated Alk Phos, resolved - Likely related to chronic hep C - GGT was high supporting this Hepatitis C - Diagnosed at prior admission, pt never followed up - Hep C + on repeat lab - Hep A,B, HIV neg - Dr Jara would like Hep C to be worked up to see if pt would require tx. - vRNA PCR and genotype pending - HCV RNA during 03/2017 hospitalization: 12,000,000 - Needs to f/u outpt with Dr Jara Thrombocytopenia - Initially: 286. As low as 66, now up trending 104 - ITP vs response to B. 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 Bah. Patient was in surgery during rounds and I was unable to see yesterday. I agree with the History, Examination, Assessment and Plan documented above with any addition or exceptions noted below. <Juliocesar Barcenas - Last Filed: 05/01/18 09:00>
[2018-04-30] MEDS ORDERED: Fentanyl 100 MCG/2 ML VIAL ONE ×2 (08:43→10:49)
[2018-04-30] MEDS ORDERED: Bupivacaine PF 0.5% 30 ML VIAL ONE (08:56)
[2018-04-30] MEDS ORDERED: Bacitracin Zinc Ointment 30 gm TUBE ONE (08:56)
[2018-04-30] MEDS ORDERED: Promethazine HCl 25 MG/ML VIAL SLOW IVP PRN (09:45)
[2018-04-30] MEDS ORDERED: Ondansetron HCl/PF 4 MG/2 ML Vial IVP PRN (09:45)
[2018-04-30] MEDS ORDERED: Promethazine HCl 25 MG/ML VIAL IM PRN (09:45)
[2018-04-30 11:30] VITALS: BP 105/59; TEMP 97.5
[2018-04-30] MEDS: Enoxaparin Sodium 40 MG/0.4 ML SYRINGE SC SCH (11:30)
[2018-04-30] MEDS: Doxycycline 100 MG CAP PO SCH (11:31)
[2018-04-30] MEDS ORDERED: ePHEDrine/0.9% NaCl/PF SYRINGE 50 mg/10 ml ONE (17:35)
[2018-04-30] MEDS ORDERED: Ketorolac Tromethamine 30 MG/ML VIAL ONE (17:35)
[2018-04-30] MEDS ORDERED: PHENYLEPHRINE-NS 100 MCG/ML 10 ML SYRINGE ONE (17:35)
[2018-04-30] MEDS ORDERED: Ondansetron PF 4 MG/2 ML Vial ONE (17:35)
[2018-04-30] MEDS ORDERED: Lidocaine 1% PF 5 ML VIAL ONE (17:35)
[2018-04-30] MEDS ORDERED: PROPOFOL 200 MG/20 ML VIAL ONE (17:35)
--- NOTE | 2018-05-01 14:50 | DIS-2 ---
DATE OF ADMISSION: 04/22/2018 DATE OF DISCHARGE: 04/30/2018 RESIDENT: Melodie Bah, PGY-1. ADMITTING ATTENDING: Lynn Tapia M.D. DISCHARGE ATTENDING: Juliocesar Barcenas M.D. CONSULTATIONS: 1. Hand Trauma Surgery, Dr. Samaniego. 2. Infectious Disease, Dr. Jara. PROCEDURES: 1. Hand x-ray, no evidence of acute right-hand abnormality. 2. Echocardiogram showed 55%-60% EF. Left atrium mildly dilated. Mild mitral and tricuspid regurgitation. 3. Debridement of wound down to and including subcutaneous fat of right hand. 4. Chest x-ray, no evidence of acute cardiopulmonary disease. 5. Wound debridement level two, 3 x 1 cm full-thickness skin graft harvested from the ipsilateral thigh with success with a 3 x 1 full-thickness skin graft from the ipsilateral elbow. PRIMARY DIAGNOSES: 1. Sepsis secondary to right hand cellulitis versus syphilis. 2. Right hand cellulitis. 3. Syphilis. SECONDARY DIAGNOSES: 1. Transaminitis. 2. Elevated alkaline phosphatase, resolved. 3. Hepatitis C. 4. Thrombocytopenia. 5. Substance abuse. 6. Tobacco abuse. DISCHARGE MEDICATIONS: 1. Doxycycline 100 mg b.i.d. x10 days. 2. Penicillin G 2.4 million units IM x1 on 05/03/2018. 3. Hydrocodone/acetaminophen 7.5/325 q.8 hours p.r.n. x25 tabs. DISCONTINUED MEDICATIONS: None. HISTORY OF PRESENT ILLNESS AND HOSPITAL COURSE: Mr. Palma is a 43-year-old male who presented to the ED with a right hand wound that he sustained while cutting down a tree. There was noted to be a 3.5 to 4 cm rubbery consistency lymph node in the right axilla and diffuse macular lesions around abdomen and chest and extending to arms and legs. His vitals were stable at admission and white blood cell count was 9.3. However, overnight, he developed a leukocytosis , white blood cell count 11.6. Patient became febrile, highest recorded temperature overnight 102.9 and developed chills. Other notable labs at admission with an elevated alkaline phosphatase 185. X-ray was negative for bone involvement of the right hand. Initially, MRI was ordered to further evaluate and Hand Surgery was consulted. He was started on vancomycin and Zosyn , and blood and wound cultures were obtained. A GGT was ordered to rule out bone involvement and was elevated consistent with patient's other chronic diagnosis of hepatitis C. During debridement, no gross infection was visualized and ultimately cultures were negative due to sepsis secondary to the right hand cellulitis was becoming less likely. Echo was obtained to evaluate for endocarditis if patient had a history of IV drug use. Echocardiogram was normal with the exception of mild tricuspid and mitral regurg and a mildly dilated LA. Rapid flu was negative. He ultimately did not get the MRI as Dr. Samaniego took the patient to the OR for debridement and obtained intraoperative wound cultures. Would cultures revealed NGTD at 48hrs. Dr. Samaniego recommended skin graft and this was done on the day of discharge 04/30/2018. Patient tolerated procedure well. On the second day of admission, RPR was checked and resulted positive. It took several days for the treponema pallidum antibody to result as positive. During this time, patient had intermittent fevers overnight and chills. Secondary syphilis became the most likely diagnosis and possible cause of his sepsis, rash , and enlarged lymph node. HIV, Monospot, tularemia, and Bartonella were also ordered and all resulted as negative. His urine drug screen was negative. Last reported drug use, 04/16/2015, inhaled meth. Patient began to have thrombocytopenia. He refused all doses of Lovenox during hospitalization. While pending treponema pallidum Ab, Dr. Jara with infectious disease was consulted to rule out other causes for the patients presentation. He recommended penicillin-G IM with repeat dose 1 week after. Patient's intermittent fevers trended down and he had not had a fever for 2 days at discharge. His clinical appearance and rash also improved after treatment. When penicillin G was given , vancomycin and Zosyn were discontinued and Doxycycline was started for empiric treatment of possible rickettsia versus tularemia as possible diagnosis. Patient on admission did not report a history of hepatitis C. Upon chart review this was documented in 2017. When brought to the patient's attention, he thought that he had received vaccination/treatment while admitted into correction for hepatitis. This was likely a hepatitis B vaccine. Although discharge summary states patient was very understanding and adamant about following up with GI doctor for his hepatitis C, he did not follow up. Hepatitis A, B, and C were repeated this hospitalization due to patient's doubts about a diagnosis of hepatitis C in the past. A and B were negative, but hepatitis C was positive on repeat labs. Dr. Jaar (ID) ordered a repeat viral RNA, PCR, and genotype and would like to follow up with patient after discharge. HCV/RNA during 03/2017 hospitalization was 12,000,000. Patient was noted to have elevated AST 44, 51, 57, and 52 during hospitalization. His alkaline phosphatase was also elevated as well as GGT. This is likely related to his chronic hepatitis C. Patient's initial platelets were 286, they downtrended as low as 66. This was a contributing factor to why Bartonella henselae, rickettsia were in the differential as well as syphilis. Patient started receiving doxycycline and his platelets were up trending to 104 at discharge. Patient has a history of substance abuse, IV and inhaled meth use, last use was 04/16/2018. IV drug use or multiple tattoos obtained in prision is likely the source of his hepatitis C infection. His urine drug screen was negative, checked several days after admission. DISPOSITION: Stable. DISCHARGE INSTRUCTIONS: 1. Location: Home. 2. Diet: Regular. 3. Activity: No restrictions. 4. Follow up with: PCP within 3-7 days. [facility] on 05/03/[address] shot[address]. Jara, infectious disease. Dr. Samaniego for postsurgical followup. JOSE ELIAS
--- NOTE | 2018-05-01 16:19 | OP ---
DATE OF PROCEDURE: 04/30/2018 PREOPERATIVE DIAGNOSIS: Open wound 3 x 1 cm nonhealing dorsal aspect of the neck and head of the met acarpal to the index finger, right. POSTOPERATIVE DIAGNOSIS: Open wound 3 x 1 cm nonhealing dorsal aspect of the neck and head of the me tacarpal to the index finger, right. FINDINGS: No gross infection. PROCEDURES PERFORMED: 1. Wound debridement, [id number], level 2, 3 x 1 cm full-thickness skin graft harvested from the ipsilate ral thigh with success. The patient's other diagnosis was syphilis, a recent diagnosis. 2. A 3 x 1 cm full-thickness skin graft from the ipsilateral elbow. ESTIMATED BLOOD LOSS: 5 mL. TOURNIQUET TIME: 10 minutes. No infection. DESCRIPTION OF PROCEDURE: After successful general LMA technique, the limb was prepped and draped. Timeout was done appropriately. He returned here now 6 days after initial debridement, where he was treated with soaks and dressings every other day to try to shrink the wound area, but it was still __ ___; however, was not edematous, erythematous, or draining. For this reason, we performed debridemen t using a curette, tenotomy scissors, Adson as instrumentation. It was excisional technique. It was down to and included the space with the fat layers and subcutaneous tissues were not violated in the joint bone or tendon. We noticed at that point it was completely covered with fibrinous material an d no exposed tendon or evidence of damage from any machinery, so we irrigated with 1 liter normal abelino ine and Pulsavac pressure with antibiotics inside. We then measured it, went to the ipsilateral fore arm antecubital area and harvested a skin graft that was the same size 3 x 1 cm, undermined the area for the donation of the skin and closed this with interrupted deep dermal running 4-0 Vicryl. The skin to the donor site closed with interrupted 4-0 nylon in mattress pattern and a bulky dressing was applied. He left the operating room without evidence of anesthetic or operative complication.
== END 2018-04-30 17:01 | disposition home or self-care (01) | DRG 854 ==
LOC: ERS 12:59 → OBSVTOIN 19:18 → T4-B 19:18
PROVIDERS: ADMIT Student in an Organized Health Care Education/Training Program; ATTEND Student in an Organized Health Care Education/Training Program
PROC: 0JBJ0ZZ Excision of Right Hand Subcutaneous Tissue and Fascia, Open Approach (ICD-10-PCS; 2018-04-23)
PROC: 0HRFX73 Replacement of Right Hand Skin with Autologous Tissue Substitute, Full Thickness, External Approach (ICD-10-PCS; principal; 2018-04-30)
PROC: 0JBJ0ZZ Excision of Right Hand Subcutaneous Tissue and Fascia, Open Approach (ICD-10-PCS; 2018-04-30)
PROC: 0HBDXZZ Excision of Right Lower Arm Skin, External Approach (ICD-10-PCS; 2018-04-30)
DX: A41.9 Sepsis, unspecified organism (principal); L03.113 Cellulitis of right upper limb; S61.401A Unspecified open wound of right hand, initial encounter; X58.XXXA Exposure to other specified factors, initial encounter; Y92.9 Unspecified place or not applicable; F17.210 Nicotine dependence, cigarettes, uncomplicated; F15.10 Other stimulant abuse, uncomplicated; R21 Rash and other nonspecific skin eruption; M54.9 Dorsalgia, unspecified; G89.29 Other chronic pain; B18.2 Chronic viral hepatitis C; A53.9 Syphilis, unspecified; R74.0 Nonspecific elevation of levels of transaminase and lactic acid dehydrogenase [LDH]; D69.6 Thrombocytopenia, unspecified; I08.1 Rheumatic disorders of both mitral and tricuspid valves; R59.1 Generalized enlarged lymph nodes
CPT/HCPCS: 36415; 71045; 80053; 80202; 80306; 82977; 83036; 83605; 84145; 85025; 85652; 86140; 86308; 86593; 86611; 86704; 86709; 86780; 86803; 87040; 87070; 87086; 87205; 87340; 87350; 87389; 87491; 87522; 87591; 87804; 87902; 90471; 90686; 90732; 96361; 96365; 96375; G0008; G0009; J0561; J1650; J1885; J2001; J2405; J2543; J2704; J3010; J3370; J3490; J7050; Q0162; S0020